=== PATIENT | male | born 1975 | race Caucasian/White ===

== ENCOUNTER → 2021-10-02 | Outpatient (CLI) | payer MEDICAID, SELFPAY ==
[2021-10-02 11:38] LABS: Absolute Neutrophil Count 4.5 X10^3/uL (2.0-7.7); Basophil# 0.09 X10^3/uL; Basophil% 1.3 % (0-1); Eosinophil# 0.31 X10^3/uL; Eosinophils% 4.3 % (0-5); Hematocrit 41.7 % (40-54); Hemoglobin 13.7 g/dL (13.0-16.5); Lymphocyte % 23.6 % (19-41); Mean Corp Hgb Conc 32.9 g/dL (32-36); Mean Corpuscular Hgb 29.6 pg (27.0-32.0); Mean Corpuscular Volume 90.1 fL (80-94); Mean Platelet Vol. 9.6 fl (6.2-12.0); Monocyte% 8.3 % (0-10); NRBC Flagged by Analyzer 0 % (0-5); Neutrophil # 4.48 X10^3/uL (2.7-7.7); Neutrophil % 62.4 % (47-70); Platelet Count 337 K/mm3 (150-450); RBC Distribution Width CV 13.3 % (11.6-14.6); RBC Distribution Width SD 44.1 fl (35.1-43.9); Red Blood Count 4.63 M/mm3 (4.6-6.2); White Blood Count 7.2 K/mm3 (4.4-11.0)
[2021-10-02 12:06] LABS: Hemoglobin A1c 5.3 % (3.8-5.6)
[2021-10-02 12:13] LABS: ALB/GLOB Ratio 1.1 RATIO (0.9-2.4); AST(SGOT) 16 U/L (15-37); Alanine Aminotransfer ALT/SGPT 16 U/L (16-61); Alkaline Phosphatase 83 U/L (45-117); Anion Gap 4 (5-15); BUN 15 mg/dL (7-18); BUN/Creat Ratio 14.9 RATIO (10-20); Calcium,Total 9.3 mg/dL (8.5-10.1); Chloride 107 mmol/L (98-107); Cholesterol 215 mg/dL (200); Creatinine, Serum 1.01 mg/dL (0.70-1.30); EST Glomerular Filtration Rate 85 mL/min (>60); Est Glom Filt Rate - Afr Amer 102 mL/min (>60); Globulin 3.7 g/dL (2.2-4.2); Glucose 90 mg/dL (74-106); High Density Lipoprotein 47 mg/dL; Potassium 3.6 mmol/L (3.5-5.1); Protein, Total 7.7 g/dL (6.4-8.2); Sodium Level 139 mmol/L (136-145); Thyroid Stim Hormone (TSH) 2.46 uIU/mL (0.358-3.74); Triglycerides 146 mg/dL; Very Low Density Lipoprotein 29 mg/dL (5-40)
[2021-10-02 12:37] LABS: HIV - WCH Non-Reactive (Nonreactive)
[2021-10-02 13:31] LABS: Hepatitis C Antibody Nonreactive (Nonreactive)
[2021-10-03 09:42] LABS: H. Pylori Antibody (IgG) 0.27 (0.00-0.79); PSA, Free 0.16 ng/mL
== END | disposition home or self-care (01) ==
PROVIDERS: Visit Provider Nurse Practitioner Adult Health
DX: K21.9 Gastro-esophageal reflux disease without esophagitis (principal); F41.1 Generalized anxiety disorder; R35.0 Frequency of micturition; Z13.220 Encounter for screening for lipoid disorders; Z20.5 Contact with and (suspected) exposure to viral hepatitis
CPT/HCPCS: 84154; 36415; 80053; 80061; 83036; 84153; 84443; 85025; 86677; 86703; 86803

== ENCOUNTER → 2022-07-02 | Outpatient (CLI) | payer MEDICAID, SELFPAY ==
[2022-07-02 16:01] LABS: Hematocrit 41.6 % (40-54); Hemoglobin 13.3 g/dL (13.0-16.5); Mean Corpuscular Hgb 29.1 pg (27.0-32.0); Mean Platelet Vol. 9.7 fl (6.2-12.0); Platelet Count 364 K/mm3 (150-450); RBC Distribution Width CV 13.2 % (11.6-14.6); RBC Distribution Width SD 44.6 fl (35.1-43.9); Red Blood Count 4.57 M/mm3 (4.6-6.2); White Blood Count 8.1 K/mm3 (4.4-11.0)
[2022-07-02 16:28] LABS: ALB/GLOB Ratio 1.1 RATIO (0.9-2.4); AST(SGOT) 14 U/L (15-37); Alanine Aminotransfer ALT/SGPT 16 U/L (16-61); Albumin, Serum 3.9 g/dL (3.2-5.0); Alkaline Phosphatase 69 U/L (45-117); Anion Gap 6 (5-15); BUN 20 mg/dL (7-18); BUN/Creat Ratio 17.9 RATIO (10-20); Calcium,Total 9.4 mg/dL (8.5-10.1); Chloride 108 mmol/L (98-107); Cholesterol 184 mg/dL (200); Creatinine, Serum 1.12 mg/dL (0.70-1.30); EST Glomerular Filtration Rate 75 mL/min (>60); Est Glom Filt Rate - Afr Amer 91 mL/min (>60); Globulin 3.6 g/dL (2.2-4.2); Glucose 85 mg/dL (74-106); High Density Lipoprotein 49 mg/dL; Protein, Total 7.5 g/dL (6.4-8.2); Sodium Level 144 mmol/L (136-145); Triglycerides 74 mg/dL; Very Low Density Lipoprotein 15 mg/dL (5-40)
== END | disposition home or self-care (01) ==
LOC: LAB 14:37
PROVIDERS: Visit Provider Nurse Practitioner Family
DX: Z13.220 Encounter for screening for lipoid disorders (principal)
CPT/HCPCS: 36415; 80053; 80061; 85027

== ENCOUNTER → 2023-06-29 | Outpatient (CLI) | payer BC, SELFPAY ==
--- OUTSIDE RECORDS SUMMARY | 2023-06-29 08:20 | XMS RPT_ITS | CCD ---
Author Name Unknown Address [address] [place] [id number] Organization [facility] Results Test Name Value Interpretation Reference Range Facil ity Progress note 05-06-2021 Note Date & Type Note Facility 05-06-2021 Note HNO ID: [id number] Author: Analisa Luna APRN.DIANETICIST Service: ? Author Type: Nurse Practitioner Type: Progress Notes Filed: 05/06/2021 6:54 PM Note Text: CC: Patient presents with: Cough: with ALEXIS, bodyaches, fatigue AND chills x 2 days No past medical history on file. No past surgical history on file. ALLERGIES Patient has no known allergies. MEDICATIONS No prescriptions on file. FAMILY HISTORY Problem Relation Age of Onset - Allergies Father - Asthma Father Social History Tobacco Use - Smoking status: Current Every Day Smoker Packs/day: 0.50 Years: 15.00 Pack years: 7.50 Types: Cigarettes - Smokeless tobacco: Former User Substance Use Topics - Alcohol use: No - Drug use: No HPI: Yao Beckwith is a 46 year old male who presents to the office with complaint of cough, nonproductive for a few days. Symptoms are staying the same. Associated symptoms includes body aches and cough. Denies nausea, vomiting and diarrhea. Treatments tried include nothing so far. with no relief of symptoms. Sick contacts: unknown. History of asthma, frequent episodes of bronchitis, chronic bronchitis, bronchiectasis or COPD: No Smoker: No Seasonal/environmental allergies: No The ROS is otherwise negative. The patient's pmh, medications, allergies, and past visits are reviewed. PHYSICAL EXAM: BP 116/82 Pulse 84 Temp 37.7 ?C (99.8 ?F) (Left Tympanic) Resp 16 Wt 81.1 kg (178 lb 12.8 oz) SpO2 95% General appearance: alert, cooperative, pleasant, in no acute distress Head: Normocephalic Eyes: EOM's intact, conjunctiva pink and moist, no icterus, sclera white, non-injected Oropharynx:moist without lesions, No erythema, exudates or tonsillar hypertrophy.} Heart: Negative. RRR without obvious murmur, gallop, or rubs. No ectopy. Lungs: clear to auscultation, without rales or wheeze, good air exchange will quarantine until results come back. Potential red flag symptoms discussed with the patient. Reviewed appropriate action plan to take if red flag symptoms occur. Patient agreeable to treatment plan. Analisa Luna APRN.DIANETICIST [facility] Summary Purpose Family History No Family History Records FoundNo Family History Records Found Advance Directives No Advanced Directives Records FoundNo Advanced Directives Records Found Additional Source Comments (unrecognized sect ion and content) No Status Records FoundNo Status Records Found INFORMATION SOURCE (unrecogn ized section and content) DATE CREATED AUTHOR AUTHOR'S ORGANIZ ATION 07/30/2021 [facility] FOR RECORDS PERTAINING TO PATIENTS WHO ARE OR HAVE BEEN ENROLLED IN A CHEMICAL DEPENDENCY/SUBSTANCEABUSE PROGRAM, SOME INFORMATION MAY BE OMITTED. This clinical summary was aggregated from multiple sources. Caution should be exercised in using it in the provision of clinical care. This summary normalizes information from multiple sources, and as a consequence, information in this document may materially change the coding, format and clinical context of patient data. In addition, data may be omitted in some cases. CLINICAL DECISIONS SHOULD BE BASED ON THE PRIMARY CLINICAL RECORDS. [facility] [employer] [facility]. provides no warranty or guarantee of the accuracy or completeness of information in this document.
--- NOTE | 2023-06-30 12:32 | PFT ---
INTRODUCTION: The patient is a 48-year-old male who presents for pulmonary function studies secondary to a diagnosis of dyspnea. Respiratory therapy reported good patient effort. Bronchodilators were used during testing. INTERPRETATION: Forced expiration spirometry demonstrated no evidence of a large airways obstructive ventilatory defect. There was no significant response to aerosolized bronchodilators. Spirograms are of good quality and plateau normally. The respiratory flow-volume loop is normal. Body plethysmography was performed and revealed lung volumes to be within normal limits. Diffusing capacity by single breath CO was also within normal limits. IMPRESSION: Grossly normal pulmonary function studies.
== END | disposition home or self-care (01) ==
PROVIDERS: Referring Provider Nurse Practitioner Family; Visit Provider Nurse Practitioner Family
DX: R06.00 Dyspnea, unspecified (principal)
CPT/HCPCS: 94060; 94726; 94729

== ENCOUNTER 2023-09-01 08:16 | Day surgery (SDC) | payer BC, SELFPAY ==
[2023-09-01] VITALS (7 sets, daily range): BP systolic 92–136; BP diastolic 67–81; PULSE 70–89; RESP 16–17; TEMP 36.1–36.4; O2SAT 95–100; BMI 26.9
[2023-09-01] MEDS: Lactated Ringers 1,000 ML 15 ML IV (08:52)
--- NOTE | 2023-09-01 09:30 | EGD_PTH ---
PATIENT: SALLY BECKWITH LOC: EN U#:[id number] AGE/SX: 48/M ROOM: RE09/01/[address]: Dr. Naga Zuniga MD : 1975 BED: DIS: 09/01/2023 SPEC #: [id number] RECD: 09/01/23 15:20 STATUS: SALO BOYD #: [id number] BALA: 09/01/23 09:[address]: Naga Zuniga DEPT: SURGICAL PATHOLOGY RECD BY: Mona Santana ENTERED: 09/02/23 09:55 SP TYPE: EGD BIOPSY OTHR DR: [facility] Tissues: A - Duodenum, NOS B - Gastric mucous membrane C - Gastric fundus D - Stomach, NOS E - Esophagus, NOS F - Descending colon G - Sigmoid colon biopsy Procedures: Special Stain Group II Surgery Specimen Level IV Alcian Blue/PAS (control) HEADER OPERATION: Colonoscopy, EGD with ph probe placement, biopsy PRE-OP DIAGNOSIS: Acid reflux, Dysphagia, Constipation, Diarrhea TISSUE SUBMITTED: A- Duodenal bulb mucosa biopsy, B- Antrum biopsy, C- Fundal polyp biopsy, D- Gastroesophageal junction biopsy, E- Mid esophagus mucosal biopsy, F- Descending random mucosa biopsy, G- Sigmoid random mucosa biopsy MICROSCOPIC DIAGNOSIS A. Duodenal bulb mucosa, biopsy: Duodenal mucosa with congestion, hemorrhage and mild and acute chronic inflammation. B. Antrum, biopsy: Mild gastritis. See microscopic description and comment. C. Fundal polyp, biopsy: Fundic gland polyp. D. Gastroesophageal junction, biopsy: A fragment of gastric mucosa with chronic inflammation. Intestinal metaplasia (goblet cell metaplasia) not identified. See comment. E. Mid esophagus mucosa, biopsy: A fragment of benign squamous epithelium. F. Descending colon mucosa, random biopsy: A fragment of colonic mucosa, no pathologic diagnosis. G. Sigmoid colon, random biopsy: Fragments of colonic mucosa, no pathologic diagnosis. REHANA/ 09/05/23 COMMENT B. Immunohistochemistry ([id number]) supports the above diagnosis. D. Alcian blue/PAS stain with matched control is used in the evaluation of the specimen. MICROSCOPIC DESCRIPTION Slides are reviewed. B. The specimen shows fragments of gastric mucosa with chronic inflammatory cell infiltrates in the lamina propria consisting of lymphocytes and plasma cells, consistent with mild chronic gastritis. GROSS DESCRIPTION A. Received in fixative is one container labeled with the patient's name and designated Duodenal bulb mucosa biopsy. The specimen consists of one irregular fragment of light plata soft tissue that measures 0.3 x 0.3 x 0.1 cm. The specimen is totally submitted in one cassette. B. Received in fixative is one container labeled with the patient's name and designated Antrum biopsy. The specimen consists of one irregular fragment of light plata soft tissue that measures 0.4 x 0.2 x 0.1 cm. The specimen is totally submitted in one cassette. C. Received in fixative is one container labeled with the patient's name and designated Fundal polyp biopsy. The specimen consists of two irregular fragments of light plata soft tissue that in aggregate measure 0.8 x 0.2 x 0.1 cm. The specimen is totally submitted in one cassette. D. Received in fixative is one container labeled with the patient's name and designated GE junction biopsy. The specimen consists of one irregular fragment of light plata soft tissue that measures 0.4 x 0.3 x 0.1 cm. The specimen is totally submitted in one cassette. E. Received in fixative is one container labeled with the patient's name and designated Mid esophagus mucosal biopsy. The specimen consists of one irregular fragment of light plata soft tissue that measures 0.5 x 0.4 x 0.1 cm. The specimen is totally submitted in one cassette. F. Received in fixative is one container labeled with the patient's name and designated Descending random mucosa biopsy. The specimen consists of one irregular fragment of light plata soft tissue that measures 0.3 x 0.3 x 0.1 cm. The specimen is totally submitted in one cassette. G. Received in fixative is one container labeled with the patient's name and designated Sigmoid random mucosa biopsy. The specimen consists of two irregular fragments of light plata soft tissue that in aggregate measure 0.6 x 0.3 x 0.1 cm. The specimen is totally submitted in one cassette. SJ/ 09/02/23 TC:3 CPT:33931f5,79851
--- NOTE | 2023-09-01 09:30 | IMM_PTH ---
PATIENT: SALLY BECKWITH LOC: EN U#:[id number] AGE/SX: 48/M ROOM: RE09/01/[address]: Dr. Naga Zuniga MD : 1975 BED: DIS: 09/01/2023 SPEC #: [id number] RECD: 09/02/23 08:12 STATUS: SALO REErich #: [id number] BALA: 09/01/23 09:[address]: Naga Zuniga DEPT: IMMUNOHISTOCHEMISTRY RECD BY: Edgardo Brandon ENTERED: 09/02/23 08:13 SP TYPE: IMMUNO OTHR DR: [facility] Tissues: B - Stomach, NOS Procedures: H Pylori (initial) PHYSICIAN & INSTITUTION [place] [address] SPECIMEN INFORMATION: Tissue Source: Antrum biopsy - B Clinical Info: Acid reflux, Dysphagia, Constipation, Diarrhea Specimen Number: [id number] CPT code: 87849 METHODOLOGY: Deparaffinized sections of prefer/formalin-fixed tissue or PAP/DQ stained slides are incubated with monoclonal/polyclonal antibodies/oligonucleotide probes. Localization is made via biotin free immunoperoxidase method. Appropriate controls are performed and reacted as expected. Results on target cell population are indicated in the following table: RESULTS: ANTIBODY / CLONE RESULT Block B H Pylori (polyclonal) negative These tests were developed and their performance characteristics determined by [facility]. They may not have been cleared or approved by the U.S. Food and Drug Administration. The FDA has determined that such clearance or approval is not necessary. The above immunohistochemical/dualISH markers are ordered and reviewed by the Pathologist. INTERPRETATION: Antrum, biopsy: Negative for Helicobacter pylori organisms. REHANA/ 09/05/23
--- NOTE | 2023-09-01 09:53 | PCM.HP.BLA ---
History and Physical Date of Admission: 09/01/23 Date of Service: 07/20/23 MR#: [id number] Acct: [id number] Name: SALLY BECKWITH Rep #: [id number] : 1975 Provider: Dr. 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 Naga Zuniga MD) Acid reflux Bloating Constipation Diarrhea Dysphagia Family History (Updated 07/20/23 @ 13:43 by Nalini Stringer) Father AsthmaGrandmother Cancer lung Social History Smoking Status: Current every day smoker HPI HPI HPI: Patient is a 48-year-old male who presents for evaluation of heartburn and dysphagia. They are referred for surgical consultation from the [facility]. Mr. Beckwith shares that his swallowing difficulty has become actually more infrequent in recent years but estimates that it has been there at least 15 years. He notes some associated limited choking episodes but states that his symptoms actually improved since giving up alcohol. He shares that his reflux symptoms (he denies significant heartburn symptoms) have been present for about 25 years but have been worse over the past 15 years. He shares that he has recently resolved to try to get healthier after he was challenged by his daughter to live another 40 years. While this has been the impetus to have this issue further investigated, he notes that the past few months have been worse with his reflux symptoms. He describes pressure pushing all the way up and pressure and gestures to his neck when he experiences the reflux symptoms. He states that the symptoms often precipitate anxiety attacks and estimates this occurs with a frequency of 2-3 times per week. He notes that his symptoms seem to be worse in the evening and in the past has awoken him from sleep but this has not been the case more recently. During these times he wakes up gasping for air unable to breathe. He denies any history of frequent upper respiratory tract infections. 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 He confirms that Protonix has been helpful for the last 15 years and he certainly notices a increase in his symptoms when he is without it (he notes a recent 5-day lapse in his treatment as he awaited a refill of his medication. Mr. Beckwith confirms a roughly 15 pound weight gain in the last 3 months and attributes this to less physical activity at work as well as quitting smoking. He confirms that he is trying to space out dinner and bedtime. He is also restricting spicy foods but admits that he is not perfect. He states that he there is still a struggle with caffeine. He shares that he is trying to cut back but when he cuts back he finds himself overeating and this also produces symptoms. Patient states that he generally has 1 solid stool per day but previously experienced significant issues with constipation and diarrhea?particularly when he was still drinking alcohol. He denies any significant straining with bowel movements. He does note that given his recent antibiotic course for a tooth infection he has been more mucousy with the consistency of his bowels. He denies noting any bloody stools. He does confirm a history of hemorrhoids but denies any flares of late. There is no history of abdominal surgery. Patient denies a family history of inflammatory bowel disease, diverticulitis, or colon cancer. However, he shares that his father has told him that he is covered in ulcers all the way through but he is unsure of what this means exactly as his father is somewhat quiet about these matters. ROS General General: Yes weight change and fatigue; No appetite, colon cancer, breast cancer or weakness HEENT HEENT: Yes difficulty swallowing, eye injury and eye surgery; No swollen glands or hoarseness Endo Endocrine: No thyroid disease, diabetes mellitus, thyroid cancer, Hair loss, heat intolerance or cold intolerance Skin Skin: Yes rash; No changing moles Breast Breast: No left breast lump, right breast lump, nipple discharge, breast pain, abnormal mammogram, abnormal US or breast enlargement Musc Musculoskeletal: Yes back problems and arthritis; No rheumatoid arthritis, gout or joint pain Cardio Cardiovascular: No murmur, pacemaker, heart disease, atrial fibrillation, high blood pressure, heart attack, heart stent, palpitations, shortness of breat with exertion or chest pain Psych Psychiatric: Yes depression and anxiety; No hearing voices Resp Respiratory: Yes shortness of breath, No sleep apnea, Yes cough, No COPD, No asthma, No emphysema and No wheezing Gastro Gastrointestinal: Yes abdominal pain, Yes nausea or vomiting, Yes diarrhea, Yes constipation, Yes blood in stool, Yes acid reflux, Yes hemorrhoids, No ulcers, No gallbladder problem and Yes black,tarry stools Reg Hematologic: No blood thinners, No blood disorders, No bleeding, No anemia and No blood clots Neuro Neurologic: No system reviewed and no additional complaints, except as documented, No as per HPI, No abnormal gait, No abnormal hearing, No abnormal movements, No abnormal speech, No behavioral changes, No burning sensations, No confusion, No convulsions, No disequilibrium, No dizziness, No localized weakness, No frequent falls, No headache(s), No lack of coordination, No loss of vision, No memory loss, Yes numbness, No other visual disturbances, No radicular pain, No restless legs, No sensory deficit, No syncope, Yes tingling, No tremor(s), No weakness and No other Exam Const General: cooperative and anxious Orientation: alert, awake and oriented x3 Resp Effort & Inspection: normal respiratory effort GI Other: Nondistended, no scars, soft, mildly tender to palpation (deep) of the epigastrium. Assessment and Plan Assessment and Plan (1) Acid reflux: Status: Acute Comment: This is a 48-year-old male who presents with a number of GI complaints including acid reflux. This does appear to be his main complaint although he admits that there is significant chronicity with this complaint. He suggest that it has become worse in recent months. It is partially responsive to PPI therapy. He has never undergone EGD for evaluation. There has been a recent weight gain of 15 pounds in recent months. I discussed with him that I would like to proceed with EGD for evaluation for possible hiatal hernia as well as biopsies to assess for any mucosal changes with his history of reflux and smoking. Additionally, patient has a normal BMI and appears distressed by the symptoms so I have recommended consideration of possible antireflux surgery. As part of this workup I have recommended we place a pH probe at the time of his EGD to try to calculate a DeMeester score. Mr. Beckwith is receptive of this recommendation and wishes to proceed as described because he would simply like to understand why he is feeling the way he is. Plan: EGD with pH probe placement (2) Dysphagia: Status: Acute Comment: Patient describes difficulty swallowing for years. This is somewhat improved per his report. His descriptions of food becoming stuck and reactive airway history are somewhat suggestive for possible diagnosis of eosinophilic esophagitis. I will plan to get biopsies and look carefully for this diagnosis at the time of the EGD as proposed above. Plan: EGD (3) Constipation: Status: Acute Comment: Patient describes relatively normal bowel movements since stopping his alcoholism. Yet, with his history and age now greater than 46 with no prior colonoscopic investigation I have recommended we complete a diagnostic colonoscopy in addition to the EGD proposed above. Plan: Complete colonoscopy with 2-day bowel prep in conjunction with EGD as above. 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 (4) Diarrhea: Status: Acute Comment: As with constipation, patient's diarrheal symptoms seem minimal now since leaving alcoholism behind. Still, recommending colonoscopy as above Plan: I have examined the patient and the H&P has been reviewed. There are no clinical changes since date of exam. He does state that his fasting has led to improvement in his reflux, but he also confirms that he has stopped his medication anticipation of pH probe placement. He confirms completion of a prep and that his output is now clear. His abdomen is benign on exam. He denies any questions related today's procedure. Will now proceed to endoscopy suite for planned EGD with pH probe placement as well as diagnostic colonoscopy.
--- NOTE | 2023-09-01 11:02 | OP.EGD_ITS ---
Patient Name: Yao King Procedure Date: 09/01/2023 9:52 AM Date of : 1975 Age: 48 Procedure: Upper GI endoscopy Indications: Dysphagia, Heartburn, Suspected esophageal reflux Providers: Naga Zuniga MD Medicines: See the Anesthesia note for documentation of the administered medications Patient Profile: Refer to note in patient chart for documentation of history and physical. Complications: No immediate complications. Estimated blood loss: Minimal. Procedure: Pre-Anesthesia Assessment: - The heart rate, respiratory rate, oxygen saturations, blood pressure, adequacy of pulmonary ventilation, and response to care were monitored throughout the procedure. After obtaining informed consent, the endoscope was passed under direct vision. Throughout the procedure, the patient's blood pressure, pulse, and oxygen saturations were monitored continuously. The gastroscope was introduced through the mouth, and advanced to the second part of duodenum. The upper GI endoscopy was accomplished without difficulty. The patient tolerated the procedure well. Scope In: 10:04:16 AM Scope Out: 10:22:16 AM Total Procedure Duration Time 0 hours 18 minutes 0 seconds Findings: Localized mildly erythematous mucosa without active bleeding and with no stigmata of bleeding was found in the duodenal bulb. Biopsies were taken with a cold forceps for histology. Estimated blood loss was minimal. Localized mildly erythematous mucosa without bleeding was found in the gastric antrum. Biopsies were taken with a cold forceps for Helicobacter pylori testing. Estimated blood loss was minimal. A few 3 mm semi-sessile polyps with no bleeding and no stigmata of recent bleeding were found in the gastric fundus. Biopsies were taken with a cold forceps for histology. Estimated blood loss was minimal. The Z-line was regular and was found 43 cm from the incisors. Biopsies were taken with a cold forceps for histology. Estimated blood loss was minimal. A few 2 to 4 mm mucosal nodules with a localized distribution were found in the middle third of the esophagus, 30 cm from the incisors. Biopsies were taken with a cold forceps for histology. Estimated blood loss was minimal. The upper third of the esophagus was normal. The PRESTON capsule with delivery system was introduced through the mouth and advanced into the esophagus, such that the PRESTON pH capsule was positioned 37 cm from the incisors, which was 6 cm proximal to the GE junction. The PRESTON pH capsule was then deployed and attached to the esophageal mucosa. The delivery system was then withdrawn. Endoscopy was utilized for probe placement and diagnostic evaluation. Impression: - Erythematous duodenopathy. Biopsied. - Erythematous mucosa in the antrum. Biopsied. - A few gastric polyps. Biopsied. - Z-line regular, 43 cm from the incisors. Biopsied. - Mucosal nodule found in the esophagus. Biopsied. - Normal upper third of esophagus. - The PRESTON pH capsule was deployed. Recommendation: - Discharge patient to home (via wheelchair). - Resume previous diet today. - Continue present medications. - Await pathology results. - Telephone my office for pathology results in 1 week. Procedure Code(s): --- Professional --- 43714, Esophagogastroduodenoscopy, flexible, transoral; with biopsy, single or multiple Diagnosis Code(s): --- Professional --- K31.89, Other diseases of stomach and duodenum K31.7, Polyp of stomach and duodenum K22.89, Other specified disease of esophagus R13.10, Dysphagia, unspecified R12, Heartburn CPT copyright 2021 [employer]. All rights reserved. The codes documented in this report are preliminary and upon controls technician review may be revised to meet current compliance requirements. Naga Zuniga MD 09/01/2023 11:01:53 AM This report has been signed electronically. Number of Addenda: 0 Note Initiated On: 09/01/2023 9:52 AM
--- NOTE | 2023-09-01 11:02 | OP.CCLET_ITS ---
[facility]01[facility]2023 [facility] for Yao Zuniga [facility] This procedure was performed on August. My impressions and recommendations are as follows: Impressions : - Erythematous duodenopathy. Biopsied. - Erythematous mucosa in the antrum. Biopsied. - A few gastric polyps. Biopsied. - Z-line regular, 43 cm from the incisors. Biopsied. - Mucosal nodule found in the esophagus. Biopsied. - Normal upper third of esophagus. - The PRESTON pH capsule was deployed. Recommendations : - Discharge patient to home (via wheelchair). - Resume previous diet today. - Continue present medications. - Await pathology results. - Telephone my office for pathology results in 1 week. My findings are described in the full procedure note, which is enclosed. If I can be of further assistance, please feel free to contact me at Doctor phone number(s): , Work: . Sincerely, Naga Zuniga MD 09/01/2023 11:01:53 AM This report has been signed electronically.
--- NOTE | 2023-09-01 11:07 | OP.COLON_ITS ---
Patient Name: Yao King Procedure Date: 09/01/2023 10:25 AM Date of : 1975 Age: 48 Procedure: Colonoscopy Indications: Chronic diarrhea, Constipation Providers: Naga Zuniga MD Medicines: See the Anesthesia note for documentation of the administered medications Patient Profile: Refer to note in patient chart for documentation of history and physical. Last Colonoscopy: none. The patient's first colonoscopy is today. Complications: No immediate complications. Estimated blood loss: Minimal. Procedure: Pre-Anesthesia Assessment: - The heart rate, respiratory rate, oxygen saturations, blood pressure, adequacy of pulmonary ventilation, and response to care were monitored throughout the procedure. After I obtained informed consent, the scope was passed under direct vision. Throughout the procedure, the patient's blood pressure, pulse, and oxygen saturations were monitored continuously. The Colonoscope was introduced through the anus and advanced to the cecum, identified by the appendiceal orifice, ileocecal valve and palpation. The colonoscopy was somewhat difficult due to significant looping. Successful completion of the procedure was aided by using manual pressure. The patient tolerated the procedure well. The quality of the bowel preparation was adequate. Scope In: 10:26:38 AM Scope Withdrawal Time 0 hours 18 minutes 22 seconds Scope Out: 10:52:55 AM Total Procedure Duration Time 0 hours 26 minutes 17 seconds Findings: Skin tags were found on perianal exam. The colon (entire examined portion) appeared normal. Biopsies for histology were taken with a cold forceps from the descending colon and sigmoid colon for evaluation of microscopic colitis. Estimated blood loss was minimal. Internal hemorrhoids were found during retroflexion. The hemorrhoids were Grade I (internal hemorrhoids that do not prolapse). No biopsies or other specimens were collected for this exam. Impression: - Perianal skin tags found on perianal exam. - The entire examined colon is normal. Biopsied. - Internal hemorrhoids. No specimens collected. Recommendation: - Discharge patient to home (via wheelchair). - Resume previous diet today. - Continue present medications. - Await pathology results. - Repeat colonoscopy in 10 years for screening purposes. - Telephone my office for pathology results in 1 week. Procedure Code(s): --- Professional --- 33056, Colonoscopy, flexible; with biopsy, single or multiple Diagnosis Code(s): --- Professional --- K64.0, First degree hemorrhoids K64.4, Residual hemorrhoidal skin tags K52.9, Noninfective gastroenteritis and colitis, unspecified K59.00, Constipation, unspecified CPT copyright 2021 [employer]. All rights reserved. The codes documented in this report are preliminary and upon certified medical coder review may be revised to meet current compliance requirements. Naga Zuniga MD 09/01/2023 11:06:46 AM This report has been signed electronically. Number of Addenda: 0 Note Initiated On: 09/01/2023 10:25 AM
--- NOTE | 2023-09-01 11:07 | OP.CCLET_ITS ---
[facility] This procedure was performed on August. My impressions and recommendations are as follows: Impressions : - Perianal skin tags found on perianal exam. - The entire examined colon is normal. Biopsied. - Internal hemorrhoids. No specimens collected. Recommendations : - Discharge patient to home (via wheelchair). - Resume previous diet today. - Continue present medications. - Await pathology results. - Repeat colonoscopy in 10 years for screening purposes. - Telephone my office for pathology results in 1 week. My findings are described in the full procedure note, which is enclosed. If I can be of further assistance, please feel free to contact me at Doctor phone number(s): , Work: . Sincerely, Naga Zuniga MD 09/01/2023 11:06:46 AM This report has been signed electronically.
== END 2023-09-01 11:55 | disposition home or self-care (01) ==
LOC: EN 08:18 → AC 08:19
PROVIDERS: Visit Provider Surgery
PROC: 0DJD8ZZ Inspection of Lower Intestinal Tract, Via Natural or Artificial Opening Endoscopic (ICD-10-PCS; CPT 45378; principal; 2023-09-01 09:25)
DX: K29.70 Gastritis, unspecified, without bleeding (principal); K21.9 Gastro-esophageal reflux disease without esophagitis; R13.10 Dysphagia, unspecified; K64.0 First degree hemorrhoids; K31.89 Other diseases of stomach and duodenum; K31.7 Polyp of stomach and duodenum; K64.4 Residual hemorrhoidal skin tags; F17.200 Nicotine dependence, unspecified, uncomplicated; Z79.899 Other long term (current) drug therapy
CPT/HCPCS: 45380; 43239; 88305; 88313; 88342; J7120

== ENCOUNTER → 2023-12-29 | Outpatient (CLI) | payer BC, SELFPAY ==
[2023-12-29 17:14] LABS: Absolute Lymphocyte Count 1.83 X10^3/uL (0.83-4.51); Absolute Neutrophil Count 4.8 X10^3/uL (2.0-7.7); Basophil# 0.09 X10^3/uL; Basophil% 1.2 % (0-1); Eosinophil# 0.34 X10^3/uL; Eosinophils% 4.5 % (0-5); Hematocrit 40.9 % (40-54); Hemoglobin 13.7 g/dL (13.0-16.5); Lymphocyte # 1.83 X10^3/ul (0.83-4.51); Lymphocyte % 24.1 % (19-41); Mean Corp Hgb Conc 33.5 g/dL (32-36); Mean Corpuscular Hgb 29.4 pg (27.0-32.0); Mean Corpuscular Volume 87.8 fL (80-94); Mean Platelet Vol. 9.6 fl (6.2-12.0); Monocyte# 0.48 X10^3/uL; Monocyte% 6.3 % (0-10); NRBC Flagged by Analyzer 0 % (0-5); Neutrophil # 4.83 X10^3/uL (2.7-7.7); Neutrophil % 63.6 % (47-70); Platelet Count 355 K/mm3 (150-450); RBC Distribution Width CV 13.1 % (11.6-14.6); RBC Distribution Width SD 41.5 fl (35.1-43.9); Red Blood Count 4.66 M/mm3 (4.6-6.2); White Blood Count 7.6 K/mm3 (4.4-11.0)
[2023-12-29 17:34] LABS: Vitamin B12 599 pg/mL (211-911); Vitamin D,25 Hydroxy 19.7 ng/mL
[2023-12-29 17:47] LABS: ALB/GLOB Ratio 1.1 RATIO (0.9-2.4); AST(SGOT) 27 U/L (15-37); Alanine Aminotransfer ALT/SGPT 24 U/L (16-61); Albumin, Serum 4.1 g/dL (3.2-5.0); Alkaline Phosphatase 80 U/L (45-117); Anion Gap 7 (5-15); BUN 15 mg/dL (7-18); BUN/Creat Ratio 14.9 RATIO (10-20); Calcium,Total 9.2 mg/dL (8.5-10.1); Chloride 108 mmol/L (98-107); Creatinine, Serum 1.01 mg/dL (0.70-1.30); EST Glomerular Filtration Rate 84 mL/min (>60); Est Glom Filt Rate - Afr Amer 101 mL/min (>60); Globulin 3.6 g/dL (2.2-4.2); Glucose 120 mg/dL (74-106); Potassium 3.4 mmol/L (3.5-5.1); Protein, Total 7.7 g/dL (6.4-8.2); Sodium Level 139 mmol/L (136-145); Thyroid Stim Hormone (TSH) 1.74 uIU/mL (0.358-3.74)
[2024-01-05 12:11] LABS: Testosterone, % Free 2.86 % (1.50-4.20); Testosterone, Free 12.98 ng/dL (5.00-21.00); Testosterone, Total 454 ng/dL (264-916)
== END | disposition home or self-care (01) ==
LOC: VSLAB 15:27
PROVIDERS: PCP Nurse Practitioner Family; Visit Provider Nurse Practitioner Family
DX: R53.83 Other fatigue (principal); E55.9 Vitamin D deficiency, unspecified
CPT/HCPCS: 36415; 80053; 82306; 82607; 84402; 84403; 84443; 85025

== ENCOUNTER → 2024-11-21 | Outpatient (CLI) | payer BC, SELFPAY ==
[2024-11-21 16:37] LABS: Absolute Lymphocyte Count 1.65 X10^3/uL (0.83-4.51); Absolute Neutrophil Count 5.2 X10^3/uL (2.0-7.7); Basophil# 0.09 X10^3/uL; Basophil% 1.2 % (0-1); Eosinophil# 0.18 X10^3/uL; Eosinophils% 2.4 % (0-5); Hematocrit 38.6 % (40-54); Lymphocyte # 1.65 X10^3/ul (0.83-4.51); Lymphocyte % 21.6 % (19-41); Mean Corp Hgb Conc 33.7 g/dL (32-36); Mean Corpuscular Hgb 29.2 pg (27.0-32.0); Mean Corpuscular Volume 86.7 fL (80-94); Mean Platelet Vol. 9.2 fl (6.2-12.0); Monocyte# 0.48 X10^3/uL; Monocyte% 6.3 % (0-10); NRBC Flagged by Analyzer 0 % (0-5); Neutrophil # 5.21 X10^3/uL (2.7-7.7); Neutrophil % 68.2 % (47-70); Platelet Count 315 K/mm3 (150-450); RBC Distribution Width CV 12.9 % (11.6-14.6); RBC Distribution Width SD 40.8 fl (35.1-43.9); Red Blood Count 4.45 M/mm3 (4.6-6.2); White Blood Count 7.6 K/mm3 (4.4-11.0)
[2024-11-21 17:39] LABS: ALB/GLOB Ratio 1.6 RATIO (0.9-2.4); AST(SGOT) 24 U/L (<=37); Alanine Aminotransfer ALT/SGPT 11 U/L (<=46); Albumin, Serum 4.5 g/dL (3.5-5.0); Alkaline Phosphatase 80 U/L (40-129); Anion Gap 13 (5-15); BUN 15 mg/dL (4-19); BUN/Creat Ratio 14.6 RATIO (10-20); Calcium,Total 9.5 mg/dL (7.6-11.0); Carbon Dioxide 22.5 mmol/L (21.0-32.0); Chloride 103 mmol/L (98-108); Creatinine, Serum 1.03 mg/dL (0.70-1.20); EST Glomerular Filtration Rate 90 (>60); Globulin 2.8 g/dL (2.2-4.2); Glucose 85 mg/dL (70-99); Potassium 3.8 mmol/L (3.3-5.1); Protein, Total 7.3 g/dL (5.9-8.4); Sodium Level 138 mmol/L (133-145); Total Bilirubin 0.48 mg/dL (0.00-1.30)
[2024-11-21 17:59] LABS: Cholesterol 225 mg/dL (<=200); High Density Lipoprotein 45 mg/dL; Low Density Lipoprotein Calc. 164 mg/dL; Triglycerides 81 mg/dL; Very Low Density Lipoprotein 16 mg/dL (5-40); cholesterol:hdl ratio screen 5.04
[2024-11-21 18:02] LABS: Vitamin D,25 Hydroxy 56.8 ng/mL (30-100)
== END | disposition home or self-care (01) ==
LOC: VSLAB 14:16
PROVIDERS: PCP Nurse Practitioner Family; Visit Provider Nurse Practitioner Family
DX: F41.1 Generalized anxiety disorder (principal); R14.0 Abdominal distension (gaseous); Z13.220 Encounter for screening for lipoid disorders; E55.9 Vitamin D deficiency, unspecified
CPT/HCPCS: 36415; 80053; 80061; 82306; 84443; 85025; 86003; 86005

== ENCOUNTER 2025-01-08 21:22 | Emergency (ER) | payer BC, SELFPAY ==
[2025-01-08 21:23] VITALS: BP 127/83; PULSE 109; RESP 18; TEMP 37.3; O2SAT 96; BMI 26.5
--- NOTE | 2025-01-08 21:29 | EX.ED.DYSGE1 ---
HPI History of Present Illness Chief Complaint: General Illness [facility] Medical History Depression Anxiety Rash Arthritis Injury of head and neck Gastric reflux Former smoker Shortness of breath on exertion Dysphagia Constipation Bloating Diarrhea Acid reflux Home Medications ?Medication ?Instructions ?Recorded ?Last Taken ?Type bismuth subsalicylate 262 mg 524 mg PO Q30M PRN diarrhea 07/20/23 Unknown History tablet (Pepto-Bismol) lactobacillus combination no.4 3 3,000 mmu cells PO DAILY PRN GUT 07/20/23 08/31/23 History billion cell capsule (Probiotic) HEALTH Held on 08/30/23. Instructions: FOR PROCEDURE pantoprazole 40 mg tablet,delayed 40 mg PO DAILY 07/20/23 08/16/23 History release metoclopramide HCl 5 mg tablet 5 mg PO Q8H 5 days #15 tabs 01/08/25 Unknown Rx (Reglan) omeprazole 40 mg capsule,delayed 40 mg PO DAILY 01/08/25 Unknown History release trazodone 50 mg tablet 50 mg PO QHS 01/08/25 Unknown History Allergy/AdvReac Type Severity Reaction Status Date / Time No Known Allergies Allergy Verified 01/08/25 21:23 Family History Father Asthma Grandmother Cancer lung Social History Smoking Status: Former smoker EXAM Physical Exam Const Vital Signs: 01/08/25 21:23 01/08/25 21:57 01/08/25 22:58 Temperature 99.2 F H 98.8 F Temperature Source Oral Pulse Rate 109 H 110 H Respiratory Rate 18 18 Respiratory Effort Normal Respiratory Pattern Normal Blood Pressure 127/83 H 124/47 H Blood Pressure Mean 97 72 Pulse Ox 96 97 Oxygen Delivery Method Room Air MDM MDM MDM Narrative Medical decision making narrative: HISTORY OF PRESENT ILLNESS: Chief complaint: Nausea, headache 49-year-old male history of GERD presents with concern for headache, nausea, blurred vision. Notes occurred approximate 10 hours prior to arrival after taking oral doxycycline for recently diagnosed middle ear infection. Notes he typically gets a stomach upset secondary to a weak stomach after he takes antibiotics but today symptoms have lasted longer and have been more severe. Denies chest pain or shortness of breath. Denies shmuel abdominal pain. Denies focal weakness slurred speech or loss of vision. Patient denies sudden onset or thunderclap headache, denies maximal intensity within 1 minute, vomiting, neck pain, stiffness, changes in vision, fever, history malignancy, syncope, or seizures associated with headache. REVIEW OF SYSTEMS: Pertinent positives: Headache, blurred vision, dizziness, nausea, heartburn Pertinent negatives: Focal weakness, loss of vision PHYSICAL EXAM: Nursing triage notes reviewed, Vital signs reviewed Constitutional: please see mdm HENT: MMM Eyes: Pupils equal round and reactive to light, Extraocular muscles intact Neck: No stridor, no JVD, full neck ROM Lungs: Clear to auscultation, No wheezing or rales. No increased work of breathing, no conversational dyspnea, no accessory muscle use, no nasal flaring. No respiratory distress noted Heart: Regular rate and rhythm, No murmurs, No rubs and No gallops, 2+ distal pulses (radial, femoral, posterior tibial) in all extremities Abdomen: Soft, there is no tenderness, rigidity, rebound or guarding, no obvious peritoneal signs, no palpable pulsatile abdominal masses, no auscultated abdominal bruit : No CVAT Extremities: No edema Neuro: Alert and oriented x3, neuro exam at baseline, cranial nerves II through XII are intact. No pain with extraocular muscle movement. There is negative test of skew. 5 of 5 strength in upper and lower extremities in flexion extension. Intact sensation to light touch in upper and lower extremity dermatomes. No truncal or extremity ataxia. No dysdiadochokinesia. Normal gait. 2+ reflexes in upper and lower extremities. No meningeal signs. Negative Babinski. NIH of 0. Skin: No rash or lesions noted MEDICAL DECISION MAKING: Chief Complaint: please see HPI External records reviewed: Reviewed prior outpatient notes Factors affecting care: GERD Social determinants of health: Denies alcohol History obtained from others: none Consults: none [facility] Narrative: The patient was initially hemodynamically stable, afebrile and nontoxic-appearing. Exam with no neurologic deficits. Left TM pearly cobian with some chronic appearing scarring but no sign of acute infection. No sign of otitis externa I considered the following differential diagnosis: Dehydration, intra-abdominal pathology, arrhythmia, subarachnoid hemorrhage, meningitis, carotid artery dissection, primary headache The patient's physical exam was not consistent with meningitis, subarachnoid hemorrhage or carotid artery dissection. Abdominal soft and nontender not consistent with acute surgical intra-abdominal pathology I obtained labs to further determine if the patient was suffering from a life-threatening etiology. Initially resuscitated patient 1 L normal saline, Pepcid and Reglan ALL IMAGES (IF OBTAINED) HAVE BEEN PERSONALLY REVIEWED AND INTERPRETED BY MYSELF. CBC without leukocytosis, severe anemia, no thrombocytopenia. CMP without evidence of acute kidney injury, significant electrolyte abnormality, anion gap to suggest end organ hypo-perfusion, no evidence of metabolic acidosis with a normal bicarbonate, no evidence of hepatobiliary obstructive pathology. Lipase is wnl indicating no pancreatic inflammation. On re-evaluation patient is vital signs improved. Neurologic exam remained intact. Repeat abdominal exam remain benign he noted symptomatic improvement. He is appropriate for discharge home. Suspect his presentation is related to adverse effect of medication. Encouraged him to discontinue antibiotics as I did not see any sign of otitis media or externa on his initial exam. Encouraged Reglan at home, continue pantoprazole. Discussed tricked return precautions. Gave GI follow-up. The patient and/or family, caregivers express understanding. The patient and/or family, caregivers agrees with the plan. Shared decision making: I will have a discussion with the patient and or visitors regarding risk/benefits of further testing or admission. They will be made aware of of the risk/benefits inherent in this decision they will be given the opportunity to voice understanding. Total critical care time today provided was at least 0 minutes. This excludes separately billable procedures. Critical care time (if documented) is secondary to the patient having high probability of clinically significant/life threatening deterioration in the patient's condition which required my urgent intervention. Impression: 1. Adverse reaction to medication 2. Nausea 3. Headache Dispo: Discharge This note was generated with [employer] dictation software. It may contain incorrect words, spelling, and punctuation that were not noted in review of the chart prior to signing. Lab Data Labs: Laboratory Results - last 24 hr 01/08/25 21:56 WBC 6.1 RBC 4.51 L Hgb 13.2 Hct 39.7 L MCV 88.0 MCH 29.3 MCHC 33.2 RDW Std Deviation 42.9 RDW Coeff of Sascha 13.2 Plt Count 290 MPV 9.1 Immature Gran % (Auto) 0.300 Neut % (Auto) 80.8 H Lymph % (Auto) 3.9 L Sevier % (Auto) 13.3 H Eos % (Auto) 0.7 Baso % (Auto) 1.0 Absolute Neuts (auto) 4.9 Absolute Lymphs (auto) 0.24 L Nucleated RBC % 0 Sodium 136 Potassium 3.7 Chloride 101 Carbon Dioxide 22.7 Anion Gap 13 BUN 14 Creatinine 1.03 Estim Creat Clear Calc 87.71 Est GFR (MDRD) Non-Af 90 BUN/Creatinine Ratio 13.2 Glucose 111 H Calcium 9.4 Total Bilirubin 0.30 AST 21 ALT 9 Alkaline Phosphatase 96 Total Protein 7.5 Albumin 4.3 Globulin 3.1 Albumin/Globulin Ratio 1.4 Lipase 23 Discharge Plan Triage Chief Complaint: General Illness ED Provider: Kenny Baez Dx/Rx/DC Orders Instructions: ED GERD (Adult), ED Headache, Tension Prescriptions: New metoclopramide HCl [Reglan] 5 mg tablet 5 mg PO Q8H 5 Days Qty: 15 0RF No Action pantoprazole 40 mg tablet,delayed release (DR/EC) 40 mg PO DAILY Patient Comments: ON HOLD FOR PROCEDURE Probiotic 3 billion cell capsule 3,000 mmu cells PO DAILY PRN (Reason: GUT HEALTH) Rx Instructions: administer with a meal Pepto-Bismol 262 mg tablet 524 mg PO Q30M PRN (Reason: diarrhea) Rx Instructions: do not exceed 8 doses in a 24 hour period trazodone 50 mg tablet 50 mg PO QHS omeprazole 40 mg capsule,delayed release(DR/EC) 40 mg PO DAILY Primary Care Provider: Unique Ferreira Referrals: Evert De La Garza DO [Med Staff - Active Staff] - Unique Ferreira, [employer] [Primary Care Provider] - Activity Restrictions/Additional Instructions: Thank you for trusting us with your care today! Your labs are reassuring. Your exam is reassuring. Please take Reglan as needed for headache and nausea control Please take Tylenol (2 pills, 650 mg), ibuprofen (2 pills, 400 mg) every 6 hours as needed for pain and fever control. Please return to the emergency department if your symptoms change or worsen. Please follow with your primary care physician + GI for further outpatient evaluation and management. Print Language: Iranian Disposition Disposition: Home, Self Care Discharge Date/Time: 01/08/25 23:03
--- NOTE | 2025-01-08 21:44 | EKG12_ITS ---
Test Reason : DYSRHYTHMIA Blood Pressure : */* mmHG Vent. Rate : 107 BPM Atrial Rate : 107 BPM P-R Int : 162 ms QRS Dur : 78 ms QT Int : 304 ms P-R-T Axes : 15 37 -12 degrees QTcB Int : 405 ms Sinus tachycardia Otherwise normal ECG Confirmed by NAYELI MONTOYA, DONELL ([id number]), editor continuity and script KAI BERUMEN ([id number]) on 01/09/2025 8:34:37 AM Referred By: Confirmed By: DONELL TYLER MD
--- OUTSIDE RECORDS SUMMARY | 2025-01-08 21:51 | XMS RPT_ITS | CCD ---
Author Organization [facility] Care Team Providers Care Slag Skimmer Name Role Phone [facility], [facility] Primary Care Pro vider Jhon LOSS PREVENTION COORDINATOR, LOSS PREVENTION COORDINATOR-C Unique Referring Provider Jhon LOSS PREVENTION COORDINATOR, LOSS PREVENTION COORDINATOR-C Unique Other Provider Dr. Sebastien Orellana Attending [place] [address] Pro vider Jhon LOSS PREVENTION COORDINATOR, LOSS PREVENTION COORDINATOR-C Unique Referring Provider Jhon LOSS PREVENTION COORDINATOR, LOSS PREVENTION COORDINATOR-C Unique Other Provider Dr. Sebastien Orellana Attending [place] [address] [place] [address] Naga Zuniga Attending Provider WILFRIDO Sanchez Attending Provider Dr. Naga Zuniga Other Provider Jhon LOSS PREVENTION COORDINATOR-C, Unique Primary Care Provider Jhon LOSS PREVENTION COORDINATOR-C, Unique Attending Provider Jhon VSC, Unique Attending Unavailabl e Jhon VSC, Unique Primary Care Unavailabl e Jhon VSCHadleyUnique Attending Unavailabl e Jhon VSC, Unique Primary Care Unavailabl e Medications Current Medications Medication Drug Class(es) Dates Sig (Normalized) Sig (Original) Lactobacillus Combination No.4 (Probiotic) 3 billion cell capsule (2 sources) Start: 07-20-2023 Lactobacillus Combination No.4 (Probiotic) 3 billion cell capsule Active 3000 NMA PO DAILY as needed for G[employer] July 20, 2023 1:00am On Hold: FOR PROCEDURE administer with a meal Start: 07-20-2023 take 3 capsules by m outh once daily Lactobacillus Combination No.4 (Probiotic) 3 billion cell capsule Active 3000 MMU CELLS PO DAILY July 20, 2023 1:00am administer with a meal Completed/Discontinued Medications Medication Drug Class(es) Dates Sig (Normalized) Sig (Original) bismuth subsalicylate 262 mg oral tablet (2 sources) Bismuth Start: 07-20-2023 take 8 tablets by mouth every twenty-four hours for diarrhea Bismuth Subsalicylate (Pepto-Bismol) 262 mg tablet Active 524 mg PO Q30M as needed for diarrhea July 20, 2023 1:00am On Hold: FOR PROCEDURE do not exceed 8 doses in a 24 hour period pantoprazole 40 mg delayed release oral tablet (2 sources) Proton Pump Inhibitor Start: 07-20-2023 take 1 tablet by mouth once daily Pantoprazole 40 mg tablet,delayed release (DR/EC) Active 40 mg PO DAILY July 20, 2023 1:00am On Hold: FOR PROCEDURE Problems Active Problems Problem Classification Problem Date Documented Da te Episodic/Chronic Anxiety disorders (1 source) Generalized anxiety disorder; Translations: [Generalized anxiety disorder] Onset: Chronic Esophageal disorders (3 sources) Gastroesophageal reflux disease; Translations: [Gastro-esophageal reflux disease without esophagitis] 07-20-2023 Chronic Comment on above: This is a 48-year-ol d male who presents with a number of GI complaints including acid reflux. This does appear to be his main complaint although he admits that there is significant chronicity with this complaint. He suggest that it has become worse in recent months. It is partially responsive to PPI therapy. He has never undergone EGD for evaluation. There has been a recent weight gain of 15 pounds in recent months. I discussed with him that I would like to proceed with EGD for evaluation for possible hiatal hernia as well as biopsies to assess for any mucosal changes with his history of reflux and smoking. Additionally, patient has a normal BMI and appears distressed by the symptoms so I have recommended consideration of possible antireflux surgery. As part of this workup I have recommended we place a pH probe at the time of his EGD to try to calculate a DeMeester score. Mr. King is receptive of this recommendation and wishes to proceed as described because he would simply like to understand why he is feeling the way he is. Other gastrointestinal disorders (2 sources) Dysphagia; Translations: [Dysphagia, unspecified] 07-20-2023 Episodic Comment on above: Patient describes di fficulty swallowing for years. This is somewhat improved per his report. His descriptions of food becoming stuck and reactive airway history are somewhat suggestive for possible diagnosis of eosinophilic esophagitis. I will plan to get biopsies and look carefully for this diagnosis at the time of the EGD as proposed above. Other gastrointestinal disorders (2 sources) Diarrhea; Translations: [Diarrhea, unspecified] 07-20-2023 Episodic Comment on above: As with constipation , patient's diarrheal symptoms seem minimal now since leaving alcoholism behind. Still, recommending colonoscopy as above Other gastrointestinal disorders (2 sources) Abdominal bloating; Translations: [Abdominal distension (gaseous)] 07-20-2023 Episodic Other gastrointestinal disorders (2 sources) Constipation; Translations: [Constipation, unspecified] 07-20-2023 Episodic Comment on above: Patient describes re latively normal bowel movements since stopping his alcoholism. Yet, with his history and age now greater than 46 with no prior colonoscopic investigation I have recommended we complete a diagnostic colonoscopy in addition to the EGD proposed above. Other gastrointestinal disorders (1 source) Constipation, unspecified; Translations: [Constipation, unspecified] 07-20-2023 Episodic Other gastrointestinal disorders (1 source) Diarrhea, unspecified; Translations: [Diarrhea] 07-20-2023 Episodic Other gastrointestinal disorders (1 source) Dysphagia, unspecified; Translations: [Dysphagia, unspecified] 07-20-2023 Episodic Past or Other Problems Problem Classification Problem Date Documented Da te Episodic/Chronic Malaise and fatigue (1 source) Other fatigue; Translations: [Other fatigue] Onset: 01-20-2024 Episodic Results Test Name Value Interpretation Reference Range Facility [id number] 12-03-2024 COMMENT Normal [facility] Comment on above: Result Comment: TEST RESULTS LIMITS Class Description: Levels of Specific IgE Class Description of Class ----- < 0.10 0 Negative 0.10 - 0.31 0/I Equivocal/Low 0.32 - 0.55 I Low 0.56 - 1.40 II Moderate 1.41 - 3.90 III High 3.91 - 19.00 IV Very High 19.01 - 100.00 V Very High >100.00 Very High [id number] Milk <0.10 kU/L Class 0 Z274-JqF Codfish <0.10 kU/L Class 0 G619-DkU Wheat <0.10 kU/L Class 0 Q184-MsO Watson <0.10 kU/L Class 0 H316-RvE Peanut <0.10 kU/L Class 0 M907-CqF Soybean <0.10 kU/L Class 0 A968-AyY Shrimp <0.10 kU/L Class 0 B117-DpV Pork <0.10 kU/L Class 0 A274-WgN Beef <0.10 kU/L Class 0 B165-JjP Mussel <0.10 kU/L Class 0 E781-LwC Tuna <0.10 kU/L Class 0 W461-EfC [place] <0.10 kU/L Class 0 M146-OvZ Chocolate/Fort Wing[place] <0.10 kU/L Class 0 R607-FqY Egg, Whole <0.10 kU/L Class 0 TESTING PERFORMED AT [facility]. ORIGINAL REPORT ON FILE IN LAB CONTAINS ADDITIONAL TEST SITE INFORMATION. Performed By: #### L 506.1000, L3100.5310, L100.0100, L500.4050, L501.9520, L503.0105 #### [facility] [address] [place], [place], [id number] Absolute lymphocyte countOrd ered By: [facility] Unique Ferreira on 11-21-2024 Lymphocytes Auto (Unsp spec) [#/Vol] 1.65 10*3/uL 0.83-4.51 [facility] Absolute neutrophil countOrd ered By: [facility] Unique Ferreira on 11-21-2024 Neutrophils (Bld) [#/Vol] 5.2 10*3/uL 2.0-7.7 [facility] Anion gap in Serum or Plasma Ordered By: [facility] Unique Jhon on 11-21-2024 Anion gap [Moles/Vol] 13 mmol/L 5- [facility] Automated lymphocyte count a s percentage of total leukocytesOrdered By: [facility] Uniquedeisy Ferreira on 11-21-2024 Lymphocytes/100 WBC Auto (Unsp spec) 21.6 % - [facility] BUN/creatinine ratioOrdered By: [facility] Unique Jhon on 11-21-2024 Urea nitrogen/Creatinine [Mass ratio] 14.6 mg/mg 10- [facility] Basophil percentageOrdered B y: [facility] Unique Jhon on 11-21-2024 Basophils/100 WBC (Bld) 1.2 % High 0-1 [facility] Bilirubin, totalOrdered By: [facility] Unique Jhon on 11-21-2024 Bilirubin [Mass/Vol] 0.48 mg/dL 0.00-1.30 [facility] CBC W/Diff, Automatedon 11-04 Absolute Lymph 1.65 X10 3/uL Normal 0.83-4.51 [facility] Comment on above: Performed By: #### L 501.9520, L506.1001, L5500.0550, L500.4050, L500.4100, L100.0100 #### [facility] [address] [place], [address] Absolute Neut 5.2 X10 3/uL Normal 2.0-7.7 [facility] Comment on above: Performed By: #### L 501.9520, L506.1001, L5500.0550, L500.4050, L500.4100, L100.0100 #### [facility] [address] [place], [address] Basophils/100 WBC (Bld) 1.2 % High 0-1 [facility] Comment on above: Performed By: #### L 501.9520, L506.1001, L5500.0550, L500.4050, L500.4100, L100.0100 #### [facility] [address] [place], [address] Eosinophils/100 WBC (Bld) 2.4 % Normal 0-5 [facility] Comment on above: Performed By: #### L 501.9520, L506.1001, L5500.0550, L500.4050, L500.4100, L100.0100 #### [facility] [address] [place], [address] Erythrocyte distribution width (RBC) [Ratio] 12.9 % Normal 11.6-14.6 [facility] Comment on above: Performed By: #### L 501.9520, L506.1001, L5500.0550, L500.4050, L500.4100, L100.0100 #### [facility] [address] [place], [address] Hematocrit (Bld) [Volume fraction] 38.6 % Low 40-54 [facility] Comment on above: Performed By: #### L 501.9520, L506.1001, L5500.0550, L500.4050, L500.4100, L100.0100 #### [facility] [address] [place], [address] Hemoglobin (Bld) [Mass/Vol] 13.0 g/dL Normal 13.0-16.5 [facility] Comment on above: Performed By: #### L 501.9520, L506.1001, L5500.0550, L500.4050, L500.4100, L100.0100 #### [facility] [address] [place], [address] IG% 0.300 Normal 0.0-0.9 [facility] Comment on above: Result Comment: IG% - Immature Granulocytes (promyelocytes, myelocytes and metamyelocytes) > 1% indicates that a LEFT SHIFT is Present. Performed By: #### L 501.9520, L506.1001, L5500.0550, L500.4050, L500.4100, L100.0100 #### [facility] [address] [place], [address] Lymphocytes/100 WBC (Bld) 21.6 % Normal 19-41 [facility] Comment on above: Performed By: #### L 501.9520, L506.1001, L5500.0550, L500.4050, L500.4100, L100.0100 #### [facility] [address] [place], [address] MCH (RBC) [Entitic mass] 29.2 pg Normal 27.0-32.0 [facility] Comment on above: Performed By: #### L 501.9520, L506.1001, L5500.0550, L500.4050, L500.4100, L100.0100 #### [facility] [address] [place], [address] MCHC (RBC) [Mass/Vol] 33.7 g/dL Normal 32-36 [facility] Comment on above: Performed By: #### L 501.9520, L506.1001, L5500.0550, L500.4050, L500.4100, L100.0100 #### [facility] [address] [place], [address] MCV (RBC) [Entitic vol] 86.7 fL Normal 80-94 [facility] Comment on above: Performed By: #### L 501.9520, L506.1001, L5500.0550, L500.4050, L500.4100, L100.0100 #### [facility] [address] [place], [address] Monocytes/100 WBC (Bld) 6.3 % Normal 0-10 [facility] Comment on above: Performed By: #### L 501.9520, L506.1001, L5500.0550, L500.4050, L500.4100, L100.0100 #### [facility] [address] [place], [address] Neutrophils/100 WBC (Bld) 68.2 % Normal 47-70 [facility] Comment on above: Performed By: #### L 501.9520, L506.1001, L5500.0550, L500.4050, L500.4100, L100.0100 #### [facility] [address] [place], [address] Nucleated RBC (Bld) [#/Vol] 0 10*3/uL Normal 0-5 [facility] Comment on above: Performed By: #### L 501.9520, L506.1001, L5500.0550, L500.4050, L500.4100, L100.0100 #### [facility] [address], [address] Platelet mean volume (Bld) [Entitic vol] 9.2 fL Normal 6.2-12.0 [facility] Comment on above: Performed By: #### L 501.9520, L506.1001, L5500.0550, L500.4050, L500.4100, L100.0100 #### [facility] [address] [place], [address] Platelets (Bld) [#/Vol] 315 10*3/uL Normal 150-450 [facility] Comment on above: Performed By: #### L 501.9520, L506.1001, L5500.0550, L500.4050, L500.4100, L100.0100 #### [facility] [address] [place], [address] RBC (Bld) [#/Vol] 4.45 10*6/uL Low 4.6-6.2 [facility] Comment on above: Performed By: #### L 501.9520, L506.1001, L5500.0550, L500.4050, L500.4100, L100.0100 #### [facility] [address] [place], [address] RDW SD 40.8 fl Normal 35.1-43.9 [facility] Comment on above: Performed By: #### L 501.9520, L506.1001, L5500.0550, L500.4050, L500.4100, L100.0100 #### [facility] [address] [place], [address] WBC (Bld) [#/Vol] 7.6 10*3/uL Normal 4.4-11.0 [facility] Comment on above: Performed By: #### L 501.9520, L506.1001, L5500.0550, L500.4050, L500.4100, L100.0100 #### [facility] [address] [place], [address] Calculated very low density lipoprotein (VLDL) cholesterol measurementOrdered By: Yvonne Ferreira on 11-21-2024 Calculated very low density lipoprotein (VLDL) cholesterol measurement 16 mg/dL 5-40 [facility] Carbon dioxide, total [Moles /volume] in Central venous bloodOrdered By: RG Ferreira on 11-21-2024 CO2 [Moles/Vol] 22.5 mmol/L 21.0-32.0 [facility] Chloride assayOrdered By: GABRIELA Ferreira on 11-21-2024 Chloride [Moles/Vol] 103 mmol/L 98-108 [facility] Comprehensive Metabolic Prof ilon 11-21-2024 Albumin [Mass/Vol] 4.5 g/dL Normal 3.5-5.0 [facility] Comment on above: Performed By: #### L 501.9520, L506.1001, L5500.0550, L500.4050, L500.4100, L100.0100 #### [facility] [address] [place], [address] Albumin/Globulin [Mass ratio] 1.6 {ratio} Normal 0.9-2.4 [facility] Comment on above: Performed By: #### L 501.9520, L506.1001, L5500.0550, L500.4050, L500.4100, L100.0100 #### [facility] [address] [place], [address] ALK PHOS 80 U/L Normal 40-129 [facility] Comment on above: Performed By: #### L 501.9520, L506.1001, L5500.0550, L500.4050, L500.4100, L100.0100 #### [facility] [address] [place], [address] ALT [Catalytic activity/Vol] 11 U/L Normal <=46 [facility] Comment on above: Performed By: #### L 501.9520, L506.1001, L5500.0550, L500.4050, L500.4100, L100.0100 #### [facility] [address] [place], [address] AST [Catalytic activity/Vol] 24 U/L Normal <=37 [facility] Comment on above: Performed By: #### L 501.9520, L506.1001, L5500.0550, L500.4050, L500.4100, L100.0100 #### [facility] [address] [place], [address] Bilirubin [Mass/Vol] 0.48 mg/dL Normal 0.00-1.30 [facility] Comment on above: Performed By: #### L 501.9520, L506.1001, L5500.0550, L500.4050, L500.4100, L100.0100 #### [facility] [address] [place], [address] BUN/CRE 14.6 RATIO Normal 10-20 [facility] Comment on above: Performed By: #### L 501.9520, L506.1001, L5500.0550, L500.4050, L500.4100, L100.0100 #### [facility] [address] [place], [address] Calcium [Mass/Vol] 9.5 mg/dL Normal 7.6-11.0 [facility] Comment on above: Performed By: #### L 501.9520, L506.1001, L5500.0550, L500.4050, L500.4100, L100.0100 #### [facility] [address] [place], [address] Chloride [Moles/Vol] 103 mmol/L Normal 98-108 [facility] Comment on above: Performed By: #### L 501.9520, L506.1001, L5500.0550, L500.4050, L500.4100, L100.0100 #### [facility] [address] [place], [address] CO2 [Moles/Vol] 22.5 mmol/L Normal 21.0-32.0 [facility] Comment on above: Performed By: #### L 501.9520, L506.1001, L5500.0550, L500.4050, L500.4100, L100.0100 #### [facility] [address] [place], [address] Creatinine [Mass/Vol] 1.03 mg/dL Normal 0.70-1.20 [facility] Comment on above: Performed By: #### L 501.9520, L506.1001, L5500.0550, L500.4050, L500.4100, L100.0100 #### [facility] [address] [place], [address] GAP 13 Normal 5-15 [facility] Comment on above: Performed By: #### L 501.9520, L506.1001, L5500.0550, L500.4050, L500.4100, L100.0100 #### [facility] [address] [place], [address] GFR/1.73 sq M.predicted among non-blacks MDRD (S/P/Bld) [Vol rate/Area] 90 mL/min/{1.73_m2} Normal >60 [facility] Comment on above: Result Comment: mL/m in/1.73m2 CKD-EPI Creatinine Equation (2020) Performed By: #### L 501.9520, L506.1001, L5500.0550, L500.4050, L500.4100, L100.0100 #### [facility] [address] [place], [address] Globulin (S) [Mass/Vol] 2.8 g/dL Normal 2.2-4.2 [facility] Comment on above: Performed By: #### L 501.9520, L506.1001, L5500.0550, L500.4050, L500.4100, L100.0100 #### [facility] [address] [place], [address] Glucose [Mass/Vol] 85 mg/dL Normal 70-99 [facility] Comment on above: Performed By: #### L 501.9520, L506.1001, L5500.0550, L500.4050, L500.4100, L100.0100 #### [facility] [address] [place], [address] Potassium [Moles/Vol] 3.8 mmol/L Normal 3.3-5.1 [facility] Comment on above: Performed By: #### L 501.9520, L506.1001, L5500.0550, L500.4050, L500.4100, L100.0100 #### [facility] [address] [place], [address] Sodium [Moles/Vol] 138 mmol/L Normal 133-145 [facility] Comment on above: Performed By: #### L 501.9520, L506.1001, L5500.0550, L500.4050, L500.4100, L100.0100 #### [facility] [address] [place], [address] T PROT 7.3 g/dL Normal 5.9-8.4 [facility] Comment on above: Performed By: #### L 501.9520, L506.1001, L5500.0550, L500.4050, L500.4100, L100.0100 #### [facility] [address] [place], [address] Urea nitrogen [Mass/Vol] 15 mg/dL Normal 4-19 [facility] Comment on above: Performed By: #### L 501.9520, L506.1001, L5500.0550, L500.4050, L500.4100, L100.0100 #### [facility] [address] [place], [address] Eosinophil percentageOrdered By: [facility] Unique Ferreira on 11-21-2024 Eosinophils/100 WBC (Bld) 2.4 % 0-5 [facility] Erythrocyte distribution wid th ratioOrdered By: [facility] Unique Ferreira on 11-21-2024 Erythrocyte distribution width (RBC) [Ratio] 12.9 % 11.6-14.6 [facility] Erythrocyte distribution wid th standard deviationOrdered By: [facility] Unique Ferreira on 11-21-2024 Erythrocyte distribution width (RBC) [Ratio] 40.8 fl 35.1-43.9 [facility] Glomerular filtration rate ( GFR) estimation/1.73 sq m using serum, plasma, or whole bOrdered By: [facility] Unique Ferreira on 11-21-2024 GFR/1.73 sq M.predicted among non-blacks MDRD (S/P/Bld) [Vol rate/Area] 90 mL/min/{1.73_m2} >60 [facility] Comment on above: mL/min/1.73m2 CKD-EP I Creatinine Equation (2020) Hematocrit Auto (Bld) [Volum e fraction]Ordered By: [facility] Unique Ferreira on 11-21-2024 Hematocrit (Bld) [Volume fraction] 38.6 % Low 40-54 [facility] Hemoglobin measurementOrdere d By: [facility] Unique Ferreira on 11-21-2024 Hemoglobin (Bld) [Mass/Vol] 13.0 g/dL 13.0-16.5 [facility] Immature granulocytes/100 WB C Auto (Bld)Ordered By: [facility] Unique Ferreira on 11-21-2024 Immature granulocytes/100 WBC (Bld) 0.300 % 0.0-0.9 [facility] Comment on above: IG% - Immature Granu locytes (promyelocytes, myelocytes and metamyelocytes) > 1% indicates that a LEFT SHIFT is Present. LDL calc ser/plasOrdered By: [facility] Unique Ferreira on 11-21-2024 Cholesterol in LDL [Mass/Vol] 164 mg/dL [facility] Comment on above: Xuaxhdxvlw=147-477 m g/dL & Higher Trym=427 mg/dL or greater Laboratory - Chemistry and C hemistry - challengeOrdered By: [facility] Unique Ferreira on 11-21-2024 AST [Catalytic activity/Vol] 24 U/L <38 [facility] Lipid Profileon 11-21-2024 CHOL:HDL 5.04 Normal [facility] Comment on above: Performed By: #### L 501.9520, L506.1001, L5500.0550, L500.4050, L500.4100, L100.0100 #### [facility] [address] [place], [address] Cholesterol [Mass/Vol] 225 mg/dL High <=200 [facility] Comment on above: Result Comment: Chol esterol level, Desirable <200 mg/dL Borderline high cholesterol 200-239 mg/dL High cholesterol >=240 mg/dL Recommendations of the NCEP Adult Treatment Panel for the following risk-cutoff thresholds for the [place] population. Performed By: #### L 501.9520, L506.1001, L5500.0550, L500.4050, L500.4100, L100.0100 #### [facility] [address] [place], [address] Cholesterol in HDL [Mass/Vol] 45 mg/dL Normal [facility] Comment on above: Result Comment: Jenny onal Cholesterol Education Program (NCEP) guidelines: <40 mg/dL: Low HDL-cholesterol (major risk factor for CHD) >= 60 mg/dL: High HDL-cholesterol (negative risk factor for CHD) HDL-cholesterol is affected by a number of factors, e.g. smoking, exercise, hormones, sex and age. Performed By: #### L 501.9520, L506.1001, L5500.0550, L500.4050, L500.4100, L100.0100 #### [facility] [address] [place], [address] Cholesterol in LDL [Mass/Vol] 164 mg/dL Normal [facility] [facility] Comment on above: Result Comment: Bord tnnlbh=389-114 mg/dL Higher Irap=429 mg/dL or greater Performed By: #### L 501.9520, L506.1001, L5500.0550, L500.4050, L500.4100, L100.0100 #### [facility] [address] [place], [address] Cholesterol in VLDL [Mass/Vol] 16 mg/dL Normal 5-40 [facility] Comment on above: Performed By: #### L 501.9520, L506.1001, L5500.0550, L500.4050, L500.4100, L100.0100 #### [facility] [address] [place], [address] Triglyceride [Mass/Vol] 81 mg/dL Normal [facility] Comment on above: Result Comment: The drugs N-Acetylcysteine and Metamizole may falsely depress this assay. Normal range: <150 mg/dL Borderline High: 150-199 mg/dL High: 200-499 mg/dL Very High: >500 mg/dL Performed By: #### L 501.9520, L506.1001, L5500.0550, L500.4050, L500.4100, L100.0100 #### [facility] [address] [place], [place], [id number] MCV (mean corpuscular volume ) determinationOrdered By: [facility] Unique Ferreira on 11-21-2024 MCV (RBC) [Entitic vol] 86.7 fL 80-94 [facility] Mean corpuscular hemoglobin (MCH) determinationOrdered By: [facility] Unique Ferreira on 11-21-2024 MCH (RBC) [Entitic mass] 29.2 pg 27.0-32.0 [facility] Mean corpuscular hemoglobin concentration (MCHC) determinationOrdered By: [facility] Unique Ferreira on 11-21-2024 MCHC (RBC) [Mass/Vol] 33.7 g/dL 32-36 [facility] Mean platelet volume determi nationOrdered By: [facility] Unique Ferreira on 11-21-2024 Platelet mean volume (Bld) [Entitic vol] 9.2 fL 6.2-12.0 [facility] Monocyte percentageOrdered B y: RG Ferreira on 11-21-2024 Monocytes/100 WBC (Bld) 6.3 % 0-10 [facility] Neutrophil percentageOrdered By: [facility] Unique Ferreira on 11-21-2024 Neutrophils/100 WBC (Bld) 68.2 % 47-70 [facility] Nucleated red blood cell per centageOrdered By: [facility] Unique Ferreira on 11-21-2024 Nucleated RBC/100 WBC (Bld) [Ratio] 0 % 0-5 [facility] Platelet countOrdered By: [facility] Unique Ferreira on 11-21-2024 Platelets (Bld) [#/Vol] 315 10*3/uL 150-450 [facility] Potassium measurement (mass/ volume)Ordered By: [facility] Unique Ferreira on 11-21-2024 Potassium (Unsp spec) [Mass/Vol] 3.8 mmol/L 3.3-5.1 [facility] RBC Auto (Bld) [#/Vol]Ordere d By: [facility] Unique Ferreira on 11-21-2024 RBC (Bld) [#/Vol] 4.45 10*6/uL Low 4.6-6.2 [facility] Screening total cholesterol/ high density lipoprotein (HDL) cholesterol ratioOrdered By: [facility] Unique Ferreira on 11-21-2024 Cholesterol.total/Mechelle sterol in HDL [Mass ratio] 5.04 {ratio} [facility] Serum creatinine measurement (mass/volume)Ordered By: [facility] Unique Ferreira on 11-21-2024 Creatinine [Mass/Vol] 1.03 mg/dL 0.70-1.20 [facility] Serum globulin measurementOr dered By: [facility] Unique Ferreira on 11-21-2024 Globulin (S) [Mass/Vol] 2.8 g/dL 2.2-4.2 [facility] Serum glucose measurement (m ass/volume)Ordered By: [facility] Unique Ferreira on 11-21-2024 Glucose [Mass/Vol] 85 mg/dL 70-99 [facility] Serum or plasma alanine kee otransferase (ALT) measurementOrdered By: [facility] Unique Ferreira on 11-21-2024 ALT [Catalytic activity/Vol] 11 U/L <47 [facility] Serum or plasma albumin norma urement (mass/volume)Ordered By: [facility] Unique Ferreira on 11-21-2024 Albumin [Mass/Vol] 4.5 g/dL 3.5-5.0 [facility] Serum or plasma albumin/glob ulin mass ratioOrdered By: [facility] Unique Ferreira on 11-21-2024 Albumin/Globulin [Mass ratio] 1.6 {ratio} 0.9-2.4 [facility] Serum or plasma alkaline iron sphatase measurementOrdered By: [facility] Jhon on 11-21-2024 ALP [Catalytic activity/Vol] 80 U/L 40-129 [facility] Serum or plasma calcium norma urement (mass/volume)Ordered By: [facility] Jhon on 11-21-2024 Calcium [Mass/Vol] 9.5 mg/dL 7.6-11.0 [facility] Serum or plasma cholesterol in HDL measurement (mass/volume)Ordered By: [facility] Jhon on 11-21-2024 Cholesterol in HDL [Mass/Vol] 45 mg/dL >40 [facility] Comment on above: National Cholesterol Education Program (NCEP) guidelines:<40 mg/dL: Low HDL-cholesterol (major risk factor for CHD)>= 60 mg/dL: High HDL-cholesterol (negative risk factor for CHD)HDL-cholesterol is affected by a number of factors, e.g. smoking, exercise, hormones, sex and age. Serum or plasma cholesterol measurement (mass/volume)Ordered By: [facility] Jhon on 11-21-2024 Cholesterol [Mass/Vol] 225 mg/dL High <201 [facility] Comment on above: Cholesterol level, D esirable <200 mg/dLBorderline high cholesterol 200-239 mg/dLHigh cholesterol >=240 mg/dLRecommendations of the NCEP Adult Treatment Panel for the following risk-cutoff thresholds for the [place] population. Serum or plasma urea nitroge n measurement (mass/volume)[facility] Urea nitrogen [Mass/Vol] 15 mg/dL 4-19 [facility] Sodium levelOrdered By: [facility] Jhon on 11-21-2024 Sodium [Moles/Vol] 138 mmol/L 133-145 [facility] TSH DL <= 0.005 mIU/L QnOrde red By: [facility] 11-21-2024 TSH Qn 2.220 uIU/mL 0.300-4.200 [facility] Thyroid Stim Hormone (TSH)on 11-21-2024 TSH 2.220 uIU/mL Normal 0.300-4.200 [facility] Comment on above: Performed By: #### L 501.9520, L506.1001, L5500.0550, L500.4050, L500.4100, L100.0100 #### [facility] [address] [place], [address] Total proteinOrdered By: [facility] Unique Ferreira on 11-21-2024 Protein [Mass/Vol] 7.3 g/dL 5.9-8.4 [facility] Triglycerides measurementOrd ered By: [facility] Unique Ferreira on 11-21-2024 Triglyceride [Mass/Vol] 81 mg/dL <199 [facility] Comment on above: The drugs N-Acetylcy steine and Metamizole may falsely depress this assay. Normal range: <150 mg/dLBorderline High: 150-199 mg/dLHigh: 200-499 mg/dLVery High: >500 mg/dL Vitamin D,25 Hydroxyon 11-21 Vitamin D 25-OH 56.8 ng/mL Normal 30-100 [facility] Comment on above: Result Comment: Vida min D Status Deficiency: <20 ng/mL (50nmol/L) Insufficiency: 20-30 ng/mL (50-75 nmol/L) Sufficiency: 30-100 ng/mL (75-250 nmol/L) Toxicity: >100 ng/mL (>250 nmol/L) Performed By: #### L 506.1000, L3100.5310, L100.0100, L500.4050, L501.9520, L503.0105 #### [facility] [address] [place], [address] White blood cell (WBC) count Ordered By: [facility] Unique Ferreira on 11-21-2024 WBC (Bld) [#/Vol] 7.6 10*3/uL 4.4-11.0 [facility] Testosterone, Total / Freeon 01-05-2024 TESTOSTER,FREE 12.98 ng/dL Normal 5.00-21.00 [facility] Comment on above: Order Comment: N Performed By: #### L 506.1000, L3100.5310, L100.0100, L500.4050, L501.9520, L503.0105 #### [facility] [address] [place], [address] TESTOSTERONE, T 454 ng/dL Normal 264-916 [facility] Comment on above: Order Comment: N Result Comment: Adul t male reference interval is based on a population of healthy nonobese males (BMI <30) between 19 and 39 years old. eryn Mack.al. JCEM 2017,102;0271-6342. PMID: [id number]. Performed By: #### L 506.1000, L3100.5310, L100.0100, L500.4050, L501.9520, L503.0105 #### [facility] [address] [place], [place], [id number] [phone] TESTOSTERONE,%F 2.86 Normal 1.50-4.20 [facility] Comment on above: Order Comment: N Result Comment: Perf ormed at: [facility] [address] [id number] [employer]can[employer] Charger: Chriss Hutchins PhD, Phone: [phone] Performed at: [facility] [address] [id number] [employer] Charger: Chayito Alvarado MD, Phone: [phone] Performed By: #### L 506.1000, L3100.5310, L100.0100, L500.4050, L501.9520, L503.0105 #### [facility] [address] [place], [place], [address] CBC W/Diff, Automatedon 07-2 Absolute Lymph 1.83 X10 3/uL Normal 0.83-4.51 [facility] Comment on above: Performed By: #### L 506.1000, L3100.5310, L100.0100, L500.4050, L501.9520, L503.0105 #### [facility] [address] [place], [address] Absolute Neut 4.8 X10 3/uL Normal 2.0-7.7 [facility] Comment on above: Performed By: #### L 506.1000, L3100.5310, L100.0100, L500.4050, L501.9520, L503.0105 #### [facility] [address] [place], [address] Basophils/100 WBC (Bld) 1.2 % High 0-1 [facility] Comment on above: Performed By: #### L 506.1000, L3100.5310, L100.0100, L500.4050, L501.9520, L503.0105 #### [facility] [address] [place], [address] Eosinophils/100 WBC (Bld) 4.5 % Normal 0-5 [facility] Comment on above: Performed By: #### L 506.1000, L3100.5310, L100.0100, L500.4050, L501.9520, L503.0105 #### [facility] [address] [place], [address] Erythrocyte distribution width (RBC) [Ratio] 13.1 % Normal 11.6-14.6 [facility] Comment on above: Performed By: #### L 506.1000, L3100.5310, L100.0100, L500.4050, L501.9520, L503.0105 #### [facility] [address] [place], [address] Hematocrit (Bld) [Volume fraction] 40.9 % Normal 40-54 [facility] Comment on above: Performed By: #### L 506.1000, L3100.5310, L100.0100, L500.4050, L501.9520, L503.0105 #### [facility] [address] [place], [address] Hemoglobin (Bld) [Mass/Vol] 13.7 g/dL Normal 13.0-16.5 [facility] Comment on above: Performed By: #### L 506.1000, L3100.5310, L100.0100, L500.4050, L501.9520, L503.0105 #### [facility] [address] [place], [address] IG% 0.300 Normal 0.0-0.9 [facility] Comment on above: Result Comment: IG% - Immature Granulocytes (promyelocytes, myelocytes and metamyelocytes) > 1% indicates that a LEFT SHIFT is Present. Performed By: #### L 506.1000, L3100.5310, L100.0100, L500.4050, L501.9520, L503.0105 #### [facility] [address] [place], [address] Lymphocytes/100 WBC (Bld) 24.1 % Normal 19-41 [facility] Comment on above: Performed By: #### L 506.1000, L3100.5310, L100.0100, L500.4050, L501.9520, L503.0105 #### [facility] [address] [place], [address] MCH (RBC) [Entitic mass] 29.4 pg Normal 27.0-32.0 [facility] Comment on above: Performed By: #### L 506.1000, L3100.5310, L100.0100, L500.4050, L501.9520, L503.0105 #### [facility] [address] [facility] [place], [address] MCHC (RBC) [Mass/Vol] 33.5 g/dL Normal 32-36 [facility] Comment on above: Performed By: #### L 506.1000, L3100.5310, L100.0100, L500.4050, L501.9520, L503.0105 #### [facility] [address] [place], [address] MCV (RBC) [Entitic vol] 87.8 fL Normal 80-94 [facility] Comment on above: Performed By: #### L 506.1000, L3100.5310, L100.0100, L500.4050, L501.9520, L503.0105 #### [facility] [address] [place], [address] Monocytes/100 WBC (Bld) 6.3 % Normal 0-10 [facility] Comment on above: Performed By: #### L 506.1000, L3100.5310, L100.0100, L500.4050, L501.9520, L503.0105 #### [facility] [address] [place], [address] Neutrophils/100 WBC (Bld) 63.6 % Normal 47-70 [facility] Comment on above: Performed By: #### L 506.1000, L3100.5310, L100.0100, L500.4050, L501.9520, L503.0105 #### [facility] [address] [place], [address] Nucleated RBC (Bld) [#/Vol] 0 10*3/uL Normal 0-5 [facility] Comment on above: Performed By: #### L 506.1000, L3100.5310, L100.0100, L500.4050, L501.9520, L503.0105 #### [facility] [address] [place], [address] Platelet mean volume (Bld) [Entitic vol] 9.6 fL Normal 6.2-12.0 [facility] Comment on above: Performed By: #### L 506.1000, L3100.5310, L100.0100, L500.4050, L501.9520, L503.0105 #### [facility] [address] [place], [address] Platelets (Bld) [#/Vol] 355 10*3/uL Normal 150-450 [facility] Comment on above: Performed By: #### L 506.1000, L3100.5310, L100.0100, L500.4050, L501.9520, L503.0105 #### [facility] [address] [place], [address] RBC (Bld) [#/Vol] 4.66 10*6/uL Normal 4.6-6.2 [facility] Comment on above: Performed By: #### L 506.1000, L3100.5310, L100.0100, L500.4050, L501.9520, L503.0105 #### [facility] [address] [place], [address] RDW SD 41.5 fl Normal 35.1-43.9 [facility] Comment on above: Performed By: #### L 506.1000, L3100.5310, L100.0100, L500.4050, L501.9520, L503.0105 #### [facility] [address] [place], [address] WBC (Bld) [#/Vol] 7.6 10*3/uL Normal 4.4-11.0 [facility] Comment on above: Performed By: #### L 506.1000, L3100.5310, L100.0100, L500.4050, L501.9520, L503.0105 #### [facility] [address] [place], [address] Comprehensive Metabolic [facility] 12-29-2023 Albumin [Mass/Vol] 4.1 g/dL Normal 3.2-5.0 [facility] Comment on above: Performed By: #### L 506.1000, L3100.5310, L100.0100, L500.4050, L501.9520, L503.0105 #### [facility] [address] [place], [address] Albumin/Globulin [Mass ratio] 1.1 {ratio} Normal 0.9-2.4 [facility] Comment on above: Performed By: #### L 506.1000, L3100.5310, L100.0100, L500.4050, L501.9520, L503.0105 #### [facility] [address] [place], [address] ALK P 80 U/L Normal 45-117 [facility] Comment on above: Performed By: #### L 506.1000, L3100.5310, L100.0100, L500.4050, L501.9520, L503.0105 #### [facility] [address] [place], [address] ALT [Catalytic activity/Vol] 24 U/L Normal 16-61 [facility] Comment on above: Performed By: #### L 506.1000, L3100.5310, L100.0100, L500.4050, L501.9520, L503.0105 #### [facility] [address] [place], [address] AST [Catalytic activity/Vol] 27 U/L Normal 15-37 [facility] Comment on above: Performed By: #### L 506.1000, L3100.5310, L100.0100, L500.4050, L501.9520, L503.0105 #### [facility] [address] [place], [address] Bilirubin [Mass/Vol] 0.30 mg/dL Normal 0.20-1.00 [facility] Comment on above: Result Comment: For patients on eltrombopag therapy, use of Dimension [place] TBIL is not recommended. Performed By: #### L 506.1000, L3100.5310, L100.0100, L500.4050, L501.9520, L503.0105 #### [facility] [address] [place], [address] BUN/CRE 14.9 RATIO Normal 10-20 [facility] Comment on above: Performed By: #### L 506.1000, L3100.5310, L100.0100, L500.4050, L501.9520, L503.0105 #### [facility] [address] [place], [address] CA,Total 9.2 mg/dL Normal 8.5-10.1 [facility] Comment on above: Performed By: #### L 506.1000, L3100.5310, L100.0100, L500.4050, L501.9520, L503.0105 #### [facility] [address] [place], [address] Chloride [Moles/Vol] 108 mmol/L High 98-107 [facility] Comment on above: Performed By: #### L 506.1000, L3100.5310, L100.0100, L500.4050, L501.9520, L503.0105 #### [facility] [address] [place], [address] CO2 [Moles/Vol] 24.0 mmol/L Normal 21.0-32.0 [facility] Comment on above: Performed By: #### L 506.1000, L3100.5310, L100.0100, L500.4050, L501.9520, L503.0105 #### [facility] [address] [place], [address] Creatinine [Mass/Vol] 1.01 mg/dL Normal 0.70-1.30 [facility] Comment on above: Result Comment: The validity of the calculated GFR GFRAA in patients over 70 years has not been determined. Clinical correlation is essential. Performed By: #### L 506.1000, L3100.5310, L100.0100, L500.4050, L501.9520, L503.0105 #### [facility] [address] [place], [address] EST GFR - AA 101 mL/min Normal >60 [facility] Comment on above: Result Comment: Afri can Brazilian GFR Calc Performed By: #### L 506.1000, L3100.5310, L100.0100, L500.4050, L501.9520, L503.0105 #### [facility] [address] [place], [address] GAP 7 Normal 5-15 [facility] Comment on above: Performed By: #### L 506.1000, L3100.5310, L100.0100, L500.4050, L501.9520, L503.0105 #### [facility] [address] [place], [address] GFR/1.73 sq M.predicted among non-blacks MDRD (S/P/Bld) [Vol rate/Area] 84 mL/min/{1.73_m2} Normal >60 [facility] Comment on above: Result Comment: Non- GFR Calc Performed By: #### L 506.1000, L3100.5310, L100.0100, L500.4050, L501.9520, L503.0105 #### [facility] [address] [place], [address] Globulin (S) [Mass/Vol] 3.6 g/dL Normal 2.2-4.2 [facility] Comment on above: Performed By: #### L 506.1000, L3100.5310, L100.0100, L500.4050, L501.9520, L503.0105 #### [facility] [address] [place], [address] Glucose [Mass/Vol] 120 mg/dL High 74-106 [facility] Comment on above: Result Comment: Fast ing Glucose result from 100 to 125 mg/dL suggests IMPAIRED HOMEOSTASIS per A.D.A. criteria. Performed By: #### L 506.1000, L3100.5310, L100.0100, L500.4050, L501.9520, L503.0105 #### [facility] [address] [place], [address] Potassium [Moles/Vol] 3.4 mmol/L Low 3.5-5.1 [facility] Comment on above: Performed By: #### L 506.1000, L3100.5310, L100.0100, L500.4050, L501.9520, L503.0105 #### [facility] [address] [place], [address] Sodium [Moles/Vol] 139 mmol/L Normal 136-145 [facility] Comment on above: Performed By: #### L 506.1000, L3100.5310, L100.0100, L500.4050, L501.9520, L503.0105 #### [facility] [address] [place], [address] T PROT 7.7 g/dL Normal 6.4-8.2 [facility] Comment on above: Performed By: #### L 506.1000, L3100.5310, L100.0100, L500.4050, L501.9520, L503.0105 #### [facility] [address] [place], [address] Urea nitrogen [Mass/Vol] 15 mg/dL Normal 7-18 [facility] Comment on above: Performed By: #### L 506.1000, L3100.5310, L100.0100, L500.4050, L501.9520, L503.0105 #### [facility] [address] [place], [address] Thyroid Stim Hormone (TSH)on 12-29-2023 TSH 1.74 uIU/mL Normal 0.358-3.74 [facility] Comment on above: Performed By: #### L 506.1000, L3100.5310, L100.0100, L500.4050, L501.9520, L503.0105 #### [facility] [address] [place], [address] Vitamin B12on 12-29-2023 Cobalamin (Vitamin B12) [Mass/Vol] 599 pg/mL Normal 211-911 [facility] Comment on above: Performed By: #### L 506.1000, L3100.5310, L100.0100, L500.4050, L501.9520, L503.0105 #### [facility] [address] [place], [address] Vitamin D,25 Hydroxyon 12-28 Vitamin D 25-OH 19.7 ng/mL Normal [facility] Comment on above: Result Comment: Vida min D 25(OH) Status Range Deficiency <20 ng/mL (50nmol/L) Insufficiency 20 - 30 ng/mL (50 - 75 nmol/L) Sufficiency 30 - 100 ng/mL (75 - 250 nmol/L) Toxicity >100 ng/mL (>250 nmol/L) Performed By: #### L 506.1000, L3100.5310, L100.0100, L500.4050, L501.9520, L503.0105 #### [facility] [address] [place], [address] 25(OH)D3 [facility] 25-hydroxyvitamin D3 [Mass/Vol] 11.9 ng/mL Low 31.0-80.0 [facility] Comment on above: Order Comment: Speci men Type: BLOOD SPECIMEN Ordering Facility: [facility] Address: [address] [place] [address], [place] [address] Result Comment: Clas sification of 25 [place] Vitamin D status: Deficiency/Insufficiency: < or = 30 ng/ml. Sufficiency/Optimal Levels: 31-80 ng/mL Toxicity: > 100 ng/mL. Test performed by chemiluminescent immunoassay. Performed By: #### 1 989-3 #### [facility] CLIA [id number] [address] [place] [address] [place] CBC W Auto Differential pane l (Bld)on 06-15-2023 Basophils (Bld) [#/Vol] 0.12 10*3/uL High <0.11 [facility] Comment on above: Order Comment: Speci men Type: BLOOD SPECIMEN Ordering Facility: [facility] Address: [address] [place] [address] Performed By: #### 5 7021-8 #### [facility] CLIA [id number] [address] [place] [address] [place] Basophils/100 WBC (Bld) 1.6 % Normal C [facility] Comment on above: Order Comment: Speci men Type: BLOOD SPECIMEN Ordering Facility: [facility] Address: [address] [place] [address] Performed By: #### 5 7021-8 #### [facility] CLIA [id number] [address] [place] [address] STATES OF [facility] Differential cell count method Nom (Bld) Auto Normal [facility] Comment on above: Order Comment: Speci men Type: BLOOD SPECIMEN Ordering Facility: [facility] Address: [address] [place] [address] Performed By: #### 5 7021-8 #### [facility] CLIA [id number] [address] [place] [address] [place] Eosinophils (Bld) [#/Vol] 0.34 10*3/uL Normal <0.46 [facility] Comment on above: Order Comment: Speci men Type: BLOOD SPECIMEN Ordering Facility: [facility] Address: [address] [place] [address] Performed By: #### 5 7021-8 #### [facility] CLIA [id number] [address] [place] [address] [place] Eosinophils/100 WBC (Bld) 4.5 % Normal [facility] Comment on above: Order Comment: Speci men Type: BLOOD SPECIMEN Ordering Facility: [facility] Address: [address] [place] [address] Performed By: #### 5 7021-8 #### [facility] CLIA [id number] [address] [place] [address] [place] Erythrocyte distribution width (RBC) [Ratio] 13.0 % Normal 11.5-15.0 [facility] Comment on above: Order Comment: Speci men Type: BLOOD SPECIMEN Ordering Facility: [facility] Address: [address] [place] [address] Performed By: #### 5 7021-8 #### [facility] CLIA [id number] [address] [place] [address] [place] Hematocrit (Bld) [Volume fraction] 39.7 % Normal 39.0-51.0 [facility] Comment on above: Order Comment: Speci men Type: BLOOD SPECIMEN Ordering Facility: [facility] Address: [address] [place] [address] Performed By: #### 5 7021-8 #### [facility] CLIA [id number] [address] [place] [id number] [place] Hemoglobin (Bld) [Mass/Vol] 13.1 g/dL Normal 13.0-17.0 [facility] Comment on above: Order Comment: Speci men Type: BLOOD SPECIMEN Ordering Facility: [facility] Address: [address] [place] [address] Performed By: #### 5 7021-8 #### [facility] CLIA [id number] [address] [id number] [address] [place] Immature granulocytes (Bld) [#/Vol] 10*3/uL Normal <0.10 [facility] Comment on above: Order Comment: Speci men Type: BLOOD SPECIMEN Ordering Facility: [facility] Address: [address] [place] [address] Performed By: #### 5 7021-8 #### [facility] CLIA [id number] [address] [place] [address] [place] Immature granulocytes/100 WBC (Bld) 0.3 % Normal [facility] Comment on above: Order Comment: Speci men Type: BLOOD SPECIMEN Ordering Facility: [facility] Address: [address] [place] [address] Performed By: #### 5 7021-8 #### [facility] CLIA [id number] [address] [place] [address] [place] Lymphocytes (Bld) [#/Vol] 2.09 10*3/uL Normal 1.00-4.00 [facility] Comment on above: Order Comment: Speci men Type: BLOOD SPECIMEN Ordering Facility: [facility] Address: [address] [place] [address] Performed By: #### 5 7021-8 #### [facility] CLIA [id number] [address] [place] [address] [place] Lymphocytes/100 WBC (Bld) 27.6 % Normal [facility] Comment on above: Order Comment: Speci men Type: BLOOD SPECIMEN Ordering Facility: [facility] Address: [address] [place] [address] Performed By: #### 5 7021-8 #### [facility] CLIA [id number] [address] [place] [address] [place] MCH (RBC) [Entitic mass] 29.4 pg Normal 26.0-34.0 [facility] Comment on above: Order Comment: Speci men Type: BLOOD SPECIMEN Ordering Facility: [facility] Address: [address] [place] [address], [place] [address] Performed By: #### 5 7021-8 #### [facility] CLIA [id number] [address] [place] [address] [place] MCHC (RBC) [Mass/Vol] 33.0 g/dL Normal 30.5-36.0 [facility] Comment on above: Order Comment: Speci men Type: BLOOD SPECIMEN Ordering Facility: [facility] Address: [address] [place] [address], [place] [address] Performed By: #### 5 7021-8 #### [facility] CLIA [id number] [address] [place] [address] [place] MCV (RBC) [Entitic vol] 89.0 fL Normal 80.0-100.0 [facility] Comment on above: Order Comment: Speci men Type: BLOOD SPECIMEN Ordering Facility: [facility] Address: [address] [place] [address] Performed By: #### 5 7021-8 #### [facility] CLIA [id number] [address] [place] [address] [place] Monocytes (Bld) [#/Vol] 0.59 10*3/uL Normal <0.87 [facility] Comment on above: Order Comment: Speci men Type: BLOOD SPECIMEN Ordering Facility: [facility] Address: [address] [place] [address] Performed By: #### 5 7021-8 #### [facility] CLIA [id number] [address] [place] [address] [place] Monocytes/100 WBC (Bld) 7.8 % Normal [facility] Comment on above: Order Comment: Speci men Type: BLOOD SPECIMEN Ordering Facility: [facility] Address: [address] [place] [address], [place] [address] Performed By: #### 5 7021-8 #### [facility] CLIA [id number] [address] [place] [address] [place] Neutrophils (Bld) [#/Vol] 4.41 10*3/uL Normal 1.45-7.50 [facility] Comment on above: Order Comment: Speci men Type: BLOOD SPECIMEN Ordering Facility: [facility] Address: [address] [place] [address] Performed By: #### 5 7021-8 #### [facility] CLIA [id number] [address] [place] [address] [place] Neutrophils/100 WBC (Bld) 58.2 % Normal [facility] Comment on above: Order Comment: Speci men Type: BLOOD SPECIMEN Ordering Facility: [facility] Address: [address] [place] [address] Performed By: #### 5 7021-8 #### [facility] CLIA [id number] [address] [place] [address] [place] Nucleated RBC (Bld) [#/Vol] 10*3/uL Normal <0.01 [facility] Comment on above: Order Comment: Speci men Type: BLOOD SPECIMEN Ordering Facility: [facility] Address: [address] [place] [address] Performed By: #### 5 7021-8 #### [facility] CLIA [id number] [address] [place] [address] [place] Nucleated RBC/100 WBC (Bld) [Ratio] 0.0 /100 WBC Normal [facility] Comment on above: Order Comment: Speci men Type: BLOOD SPECIMEN Ordering Facility: [facility] Address: [address] [place] [address] Performed By: #### 5 7021-8 #### [facility] CLIA [id number] [address] [place] [address] [place] Platelet mean volume (Bld) [Entitic vol] 10.4 fL Normal 9.0-12.7 [facility] Comment on above: Order Comment: Speci men Type: BLOOD SPECIMEN Ordering Facility: [facility] Address: [address] [place] [address] Performed By: #### 5 7021-8 #### [facility] CLIA [id number] [address] [place] [address] [place] Platelets (Bld) [#/Vol] 353 10*3/uL Normal 150-400 [facility] Comment on above: Order Comment: Speci men Type: BLOOD SPECIMEN Ordering Facility: [facility] Address: [address] [place] [address] Performed By: #### 5 7021-8 #### [facility] CLIA [id number] [address] [place] [address] [place] RBC (Bld) [#/Vol] 4.46 10*6/uL Normal 4.20-6.00 [facility] Comment on above: Order Comment: Speci men Type: BLOOD SPECIMEN Ordering Facility: [facility] Address: [address] [place] [address] Performed By: #### 5 7021-8 #### [facility] CLIA [id number] [address] [place] [address] [place] WBC (Bld) [#/Vol] 7.57 10*3/uL Normal 3.70-11.00 [facility] Comment on above: Order Comment: Speci men Type: BLOOD SPECIMEN Ordering Facility: [facility] Address: [address] [place] [address] Performed By: #### 5 7021-8 #### [facility] CLIA [id number] [facility] [address] [address] [place] Comprehensive metabolic 2000 panelon 06-15-2023 Albumin [Mass/Vol] 4.3 g/dL Normal 3.9-4.9 [facility] Comment on above: Order Comment: Speci men Type: BLOOD SPECIMEN Ordering Facility: [facility] Address: [address] [facility], [place] [address] Performed By: #### 2 132-9, 3015-3, 55562-5 #### [facility] CLIA [id number] [address] [address] [place] Performed By: #### 2 4323-8, 9, 3015-3 #### [facility] CLIA [id number] [address] [address] [place] ALP [Catalytic activity/Vol] 73 U/L Normal 38-113 [facility] Comment on above: Order Comment: Speci men Type: BLOOD SPECIMEN Ordering Facility: [facility] Address: [facility] [facility] [address], [place] [address] Performed By: #### 2 132-9, 3, #### [facility] CLIA [id number] [address] [place] [address] [place] Performed By: #### 2 4323-8, 2132-02, 3 #### [facility] CLIA [id number] [address] [address] [place] ALT [Catalytic activity/Vol] 32 U/L Normal 10-54 [facility] Comment on above: Order Comment: Speci men Type: BLOOD SPECIMEN Ordering Facility: [facility] Address: [address] [facility] [facility], [place] [address] Performed By: #### 2 132-9, 6-3, 06425-6 #### [facility] CLIA [id number] [address] [address] [place] Performed By: #### 2 4323-8, 2131-9, 3015-3 #### [facility] CLIA [id number] [address] [place] [address] [place] Anion gap [Moles/Vol] 12 mmol/L Normal 9-18 [facility] Comment on above: Order Comment: Speci men Type: BLOOD SPECIMEN Ordering Facility: [facility] Address: [address] [place] [address], [place] [address] Performed By: #### 2 132-9, 3016-3, 03511-3 #### [facility] CLIA [id number] [address] [place] [address] [place] Performed By: #### 2 4323-8, 2131-9, 3015-3 #### [facility] CLIA [id number] [address] [place] [address] [place] AST [Catalytic activity/Vol] 43 U/L High 14-40 [facility] Comment on above: Order Comment: Speci men Type: BLOOD SPECIMEN Ordering Facility: [facility] Address: [address] [place] [address], [place] [address] Performed By: #### 2 132-9, 6-3, 86460-4 #### [facility] CLIA [id number] [address] [place] [address] [place] Performed By: #### 2 4323-8, 213-9, 3015-3 #### [facility] CLIA [id number] [address] [place] [address] [place] Bilirubin [Mass/Vol] 0.2 mg/dL Normal 0.2-1.3 [facility] Comment on above: Order Comment: Speci men Type: BLOOD SPECIMEN Ordering Facility: [facility] Address: [address] [place] [address], [place] [address] Performed By: #### 2 132-9, 3016-3, 70976-2 #### [facility] CLIA [id number] [address] [place] Performed By: #### 2 4323-8, 2132-02, 3 #### [facility] CLIA [id number] [address] [address] [place] Calcium [Mass/Vol] 9.5 mg/dL Normal 8.5-10.2 [facility] Comment on above: Order Comment: Speci men Type: BLOOD SPECIMEN Ordering Facility: [facility] Address: [address] [place] [address], [place] [address] Performed By: #### 2 132-9, 3, 95375-8 #### [facility] CLIA [id number] [address] [place] [address] [place] Performed By: #### 2 4323-8, 2132-02, 3 #### [facility] CLIA [id number] [address] [place] [address] [place] Chloride [Moles/Vol] 106 mmol/L High 97-105 [facility] Comment on above: Order Comment: Speci men Type: BLOOD SPECIMEN Ordering Facility: [facility] Address: [address] [place] [address], [place] [address] Performed By: #### 2 132-9, 3, #### [facility] CLIA [id number] [address] [place] [address] [place] Performed By: #### 2 4323-8, 2132-02, 3 #### [facility] CLIA [id number] [address] [address] [place] CO2 [Moles/Vol] 21 mmol/L Low 22-30 [facility] Comment on above: Order Comment: Speci men Type: BLOOD SPECIMEN Ordering Facility: [facility] Address: [address] [place] [address], [place] [address] Performed By: #### 2 132-9, 3, #### [facility] CLIA [id number] [address] [address] [facility] Performed By: #### 2 4323-8, 2-9, 3 #### [facility] CLIA [id number] [address] [address] [place] Creatinine [Mass/Vol] 0.93 mg/dL Normal 0.73-1.22 [facility] Comment on above: Order Comment: Speci men Type: BLOOD SPECIMEN Ordering Facility: [facility] Address: [address] [place] [address], [place] [address] Performed By: #### 2 132-9, 3, #### [facility] CLIA [id number] [address] [address] [facility] Performed By: #### 2 4323-8, 2132-02, 3015-08 #### [facility] CLIA [id number] [address] [address] [place] Creatinine and Glomerular filtration rate.predicted panel (S/P/Bld) 102 mL/min/1.73m??? Normal >=60 [facility] Comment on above: Order Comment: Speci men Type: BLOOD SPECIMEN Ordering Facility: [facility] Address: [address] [place] [address], [place] [address] Result Comment: Juani mated Glomerular Filtration Rate (eGFR) is calculated using the 2020 CKD-EPI creatinine equation. This equation utilizes serum creatinine, sex, and age as parameters. The creatinine assay has traceable calibration to isotope dilution-mass spectrometry. Refer to KDIGO guidelines for clinical interpretation. In patients with unstable renal function, e.g. those with acute kidney injury, the eGFR may not accurately reflect actual GFR. Performed By: #### 2 132-9, 3015-3, #### [facility] CLIA [id number] [address] [address] [place] Performed By: #### 2 4323-8, 2-9, 6-3 #### [facility] CLIA [id number] [address] [address] [place] Glucose [Mass/Vol] 117 mg/dL High 74-99 [facility] Comment on above: Order Comment: Speci men Type: BLOOD SPECIMEN Ordering Facility: [facility] Address: [address] [place] [address], [place] [address] Result Comment: The [place] Diabetes Association (ADA) provides guidance for cutoff values for fasting glucose and random glucose. The ADA defines fasting as no caloric intake for at least 8 hours. Fasting plasma glucose results between 100 to 125 mg/dL indicate increased risk for diabetes (prediabetes). Fasting plasma glucose results greater than or equal to 126 mg/dL meet the criteria for diagnosis of diabetes. In the absence of unequivocal hyperglycemia, results should be confirmed by repeat testing. In a patient with classic symptoms of hyperglycemia or hyperglycemic crisis, random plasma glucose results greater than or equal to 200 mg/dL meet the criteria for diagnosis of diabetes. Reference: Standards of Medical Care in Diabetes 2016, [place] Diabetes Association. Diabetes Care. 2016.39(Suppl 1). Performed By: #### 2 132-9, 6-3, 84304-3 #### [facility] CLIA [id number] [address] [address] [place] Performed By: #### 2 4323-8, 2-9, 3015-3 #### [facility] CLIA [id number] [address] [address] [place] Potassium [Moles/Vol] 4.3 mmol/L Normal 3.7-5.1 [facility] Comment on above: Order Comment: Amish stephens Type: BLOOD SPECIMEN Ordering Facility: [facility] Address: [address] [place] [address], [place] [address] Performed By: #### 2 132-9, 3016-3, 37318-5 #### [facility] CLIA [id number] [address] [address] [place] Performed By: #### 2 4323-8, 2131-9, 3015-3 #### [facility] CLIA [id number] [address] [address] [place] Protein [Mass/Vol] 7.1 g/dL Normal 6.3-8.0 [facility] Comment on above: Order Comment: Speci men Type: BLOOD SPECIMEN Ordering Facility: [facility] Address: [address] [place] [address], [place] [address] Performed By: #### 2 132-9, 3015-3, 31623-9 #### [facility] CLIA [id number] [address] [place], [place] [address] [place] Performed By: #### 2 4323-8, 2132-02, 3 #### [facility] CLIA [id number] [facility] [address] [address] [place] Sodium [Moles/Vol] 139 mmol/L Normal 136-144 [facility] Comment on above: Order Comment: Speci men Type: BLOOD SPECIMEN Ordering Facility: [facility] Address: [address] [place] [address], [place] [address] Performed By: #### 2 132-9, 3, 01158-5 #### [facility] CLIA [id number] [address] [place] [address] [place] Performed By: #### 2 4323-8, 9, 3015-3 #### [facility] CLIA [id number] [address] [place], [place] [address] [place] Urea nitrogen [Mass/Vol] 15 mg/dL Normal 9-24 [facility] Comment on above: Order Comment: Speci men Type: BLOOD SPECIMEN Ordering Facility: [facility] Address: [address] [place] [address], [place] [address] Performed By: #### 2 132-9, 3016-3, 60623-4 #### [facility] CLIA [id number] [facility] [address] [place] Performed By: #### 2 4323-8, 2132-9, 3016-3 #### [facility] CLIA [id number] [address] [place] [address] [place] HbA1c (Bld)on 06-15-2023 Average glucose Estimated from glycated hemoglobin (Bld) [Mass/Vol] 108 mg/dL Normal [facility] Comment on above: Order Comment: Amish stephens Type: BLOOD SPECIMEN Ordering Facility: [facility] Address: [address] [place] [address] Result Comment: eAG: (Estimated average glucose) is a calculated value from HgbA1c and is financial representative of the average blood glucose level in the last 2-3 month period. Performed By: #### 5 5454-3 #### [facility] CLIA [id number] [address] [place] [address] [place] [facility] HbA1c (Bld) [Mass fraction] 5.4 % Normal 4.3-5.6 [facility] Comment on above: Order Comment: Amish stephens Type: BLOOD SPECIMEN Ordering Facility: [facility] Address: [address] [place] [address], [place] [address] Result Comment: [place] Diabetes Association guidelines indicate that patients with HgbA1c in the range 5.7-6.4% are at increased risk for development of diabetes, and intervention by lifestyle modification may be beneficial. HgbA1c greater or equal to 6.5% is considered diagnostic of diabetes. Performed By: #### 5 5454-3 #### [facility] CLIA [id number] [address] [place], [place] [address] [place] TSH SerPl-aCncon 06-15-2023 TSH Qn 1.620 m[IU]/L Normal 0.270-4.200 [facility] Comment on above: Order Comment: Speci men Type: BLOOD SPECIMEN Ordering Facility: [facility] Address: [address], [place] [address] Performed By: #### 2 132-9, 6-3, 07251-7 #### [facility] CLIA [id number] [address] [place] Performed By: #### 2 4323-8, 9, 3 #### [facility] CLIA [id number] [address] [place] [id number] [place] Vit B12 [facility] 024 Cobalamin (Vitamin B12) [Mass/Vol] 753 pg/mL Normal 232-1245 [facility] Comment on above: Order Comment: Speci men Type: BLOOD SPECIMEN Ordering Facility: [facility] Address: [address], [place] [address] Performed By: #### 2 132-9, 3, #### [facility] CLIA [id number] [address] [place] [address] [place] Performed By: #### 2 4323-8, 9, 3 #### [facility] CLIA [id number] [address] [place] [address] [place] Basophil percentageOrdered B y: Unique Ferreira on 07-02-2022 Bilirubin [Mass/Vol] 0.30 mg/dL 0.20-1.00 [facility] Comment on above: For patients on eltr ombopag therapy, use of Dimension [place] TBIL is not recommended. Chloride [Moles/Vol] 108 mmol/L 98-107 [facility] Cholesterol [Mass/Vol] 184 mg/dL <200 [facility] Comment on above: <200 mg/dL Desirable 200-240 mg/dL Borderline >240 mg/dL High Risk Glucose [Mass/Vol] 85 mg/dL 74-106 [facility] Potassium [Moles/Vol] 4.0 mmol/L 3.5-5.1 [facility] Protein [Mass/Vol] 7.5 g/dL 6.4-8.2 [facility] Sodium [Moles/Vol] 144 mmol/L 136-145 [facility] Triglyceride [Mass/Vol] 74 mg/dL <199 [facility] Comment on above: The drugs N-Acetylcy steine and Metamizole may falsely depress this assay.Serum Triglycerides Reference Interval Normal <150 mg/dL Borderline high 150 - 199 mg/dL High 200 - 499 mg/dL Very High > or = 500 mg/dL WBC (Bld) [#/Vol] 8.1 10*3/uL 4.4-11.0 [facility] Blood erythrocytes count (nu mber/volume)Ordered By: Unique Ferreira on 07-02-2022 RBC (Bld) [#/Vol] 4.57 10*6/uL 4.6-6.2 [facility] Blood hemoglobin measurement (mass/volume)Ordered By: Unique Ferreira on 07-02-2022 Hemoglobin (Bld) [Mass/Vol] 13.3 g/dL 13.0-16.5 [facility] Blood platelet mean volumeOr dered By: Unique Ferreira on 07-02-2022 Platelet mean volume (Bld) [Entitic vol] 9.7 fL 6.2-12.0 [facility] Determination of erythrocyte mean corpuscular volume (MCV)Ordered By: Unique Ferreira on 07-02-2022 MCV (RBC) [Entitic vol] 91.0 fL 80-94 [facility] Hematocrit Auto (Bld) [Volum e fraction]Ordered By: Unique Ferreira on 07-02-2022 Hematocrit (Bld) [Volume fraction] 41.6 % 40-54 [facility] Laboratory - Chemistry and C hemistry - challengeOrdered By: Unique Ferreira on 07-02-2022 ALP [Catalytic activity/Vol] 69 U/L 45-117 [facility] ALT [Catalytic activity/Vol] 16 U/L 16-61 [facility] CO2 [Moles/Vol] 30.0 mmol/L 21.0-32.0 [facility] Globulin (S) [Mass/Vol] 3.6 g/dL 2.2-4.2 [facility] Urea nitrogen/Creatinine [Mass ratio] 17.9 mg/mg 10-20 [facility] Laboratory - Hematology and Cell countsOrdered By: Unique Ferreira on 07-02-2022 Erythrocyte distribution width (RBC) [Entitic vol] 44.6 fL 35.1-43.9 [facility] Erythrocyte distribution width (RBC) [Ratio] 13.2 % 11.6-14.6 [facility] MCH (RBC) [Entitic mass] 29.1 pg 27.0-32.0 [facility] MCHC Auto (RBC) [Mass/Vol]Or dered By: Unique Ferreira on 07-02-2022 MCHC (RBC) [Mass/Vol] 32.0 g/dL 32-36 [facility] No Panel InformationOrdered By: Unique Ferreira on 07-02-2022 Estimated GFR (MDRD) Amer 91 mL/min >60 [facility] Comment on above: GFR Calc Estimated GFR (MDRD) Non-Af Amer 75 mL/min >60 [facility] Comment on above: Non- GFR Calc Platelets bldOrdered By: Philly Ferreira on 07-02-2022 Platelets (Bld) [#/Vol] 364 10*3/uL 150-450 [facility] Serum or plasma albumin norma urement (mass/volume)Ordered By: Unique Ferreira on 07-02-2022 Albumin [Mass/Vol] 3.9 g/dL 3.2-5.0 [facility] Serum or plasma albumin/glob ulin mass ratioOrdered By: Unique Ferreira on 07-02-2022 Albumin/Globulin [Mass ratio] 1.1 {ratio} 0.9-2.4 [facility] Serum or plasma calcium norma urement (mass/volume)Ordered By: Unique Ferreira on 07-02-2022 Calcium [Mass/Vol] 9.4 mg/dL 8.5-10.1 [facility] Serum or plasma cholesterol in HDL measurement (mass/volume)Ordered By: Unique Ferreira on 07-02-2022 Cholesterol in HDL [Mass/Vol] 49 mg/dL >40 [facility] Comment on above: The drugs N-Acetylcy steine and Metamizole may falsely depress this assay. Reference Range HDL <40 mg/dL Low HDL Cholesterol HDL >or= 60 mg/dL High HDL Cholesterol Serum or plasma cholesterol in VLDL measurement (mass/volume)Ordered By: Unique Ferreira on 07-02-2022 Cholesterol in VLDL [Mass/Vol] 15 mg/dL 5-40 [facility] Serum or plasma creatinine m easurement (mass/volume)Ordered By: Unique Ferreira on 07-02-2022 Creatinine [Mass/Vol] 1.12 mg/dL 0.70-1.30 [facility] Comment on above: The validity of the calculated GFR & GFRAA in patients over 70 years has not been determined. Clinical correlation is essential. Serum or plasma low density lipoprotein (LDL) cholesterol measurement (mass/volume)Ordered By: Unique Ferreira on 07-02-2022 Cholesterol in LDL [Mass/Vol] 120 mg/dL 0-130 [facility] Serum or plasma urea nitroge n measurement (mass/volume)Ordered By: Unique Ferreira on 07-02-2022 Urea nitrogen [Mass/Vol] 20 mg/dL 7-18 [facility] Thin prep Papanicolaou smear with manual screeningOrdered By: Unique Ferreira on 07-02-2022 Thin prep Papanicolaou smear with manual screening 14 U/L 15-37 [facility] Thin prep Papanicolaou smear with manual screening 6 5-15 [facility] Absolute lymphocyte counton 10-02-2021 Lymphocytes Auto (Unsp spec) [#/Vol] 1.70 10*3/uL 0.83-4.51 [facility] Work Phone: Basophil percentageon 2021 Basophils/100 WBC (Bld) 1.3 % 0-1 [facility] Work Phone: Bilirubin [Mass/Vol] 0.40 mg/dL 0.20-1.00 [facility] Work Phone: Comment on above: For patients on eltr ombopag therapy, use of Dimension [place] TBIL is not recommended. Chloride [Moles/Vol] 107 mmol/L 98-107 [facility] Work Phone: Cholesterol [Mass/Vol] 215 mg/dL <200 [facility] Work Phone: Comment on above: <200 mg/dL Desirable 200-240 mg/dL Borderline >240 mg/dL High Risk Eosinophils/100 WBC (Bld) 4.3 % 0-5 [facility] Work Phone: Glucose [Mass/Vol] 90 mg/dL 74-106 [facility] Work Phone: [phone] Neutrophils (Bld) [#/Vol] 4.5 10*3/uL 2.0-7.7 [facility] Work Phone: Neutrophils/100 WBC (Bld) 62.4 % 47-70 [facility] Work Phone: Potassium [Moles/Vol] 3.6 mmol/L 3.5-5.1 [facility] Work Phone: Protein [Mass/Vol] 7.7 g/dL 6.4-8.2 [facility] Work Phone: Sodium [Moles/Vol] 139 mmol/L 136-145 [facility] Work Phone: Triglyceride [Mass/Vol] 146 mg/dL [facility] Work Phone: Comment on above: The drugs N-Acetylcy steine and Metamizole may falsely depress this assay.Serum Triglycerides Reference Interval Normal <150 mg/dL Borderline high 150 - 199 mg/dL High 200 - 499 mg/dL Very High > or = 500 mg/dL WBC (Bld) [#/Vol] 7.2 10*3/uL 4.4-11.0 [facility] Work Phone: Blood erythrocytes count (nu mber/volume)on 10-02-2021 RBC (Bld) [#/Vol] 4.63 10*6/uL 4.6-6.2 [facility] Work Phone: Blood hemoglobin measurement (mass/volume)on 10-02-2021 Hemoglobin (Bld) [Mass/Vol] 13.7 g/dL 13.0-16.5 [facility] Work Phone: Blood lymphocytes/100 leukoc yteson 10-02-2021 Lymphocytes/100 WBC (Bld) 23.6 % 19-41 [facility] Work Phone: Blood monocytes/100 leukocyt eson 10-02-2021 Monocytes/100 WBC (Bld) 8.3 % 0-10 [facility] Work Phone: Blood platelet mean volumeon 10-02-2021 Platelet mean volume (Bld) [Entitic vol] 9.6 fL 6.2-12.0 [facility] Work Phone: Determination of erythrocyte mean corpuscular volume (MCV)on 10-02-2021 MCV (RBC) [Entitic vol] 90.1 fL 80-94 [facility] Work Phone: HIV 1 and HIV-2 antibody ass ay with HIV-1 p24 antigen detectionon 10-02-2021 HIV 1+2 Ab+HIV1 p24 Ag IA Ql Non-Reactive Nonreactive [facility] Work Phone: Hematocrit Auto (Bld) [Volum e fraction]on 10-02-2021 Hematocrit (Bld) [Volume fraction] 41.7 % 40-54 [facility] Work Phone: Laboratory - Chemistry and C hemistry - challengeon 10-02-2021 ALP [Catalytic activity/Vol] 83 U/L 45-117 [facility] Work Phone: ALT [Catalytic activity/Vol] 16 U/L 16-61 [facility] Work Phone: CO2 [Moles/Vol] 28.0 mmol/L 21.0-32.0 [facility] Work Phone: Globulin (S) [Mass/Vol] 3.7 g/dL 2.2-4.2 [facility] Work Phone: Urea nitrogen/Creatinine [Mass ratio] 14.9 mg/mg 10-20 [facility] Work Phone: Laboratory - Hematology and Cell countson 10-02-2021 Erythrocyte distribution width (RBC) [Entitic vol] 44.1 fL 35.1-43.9 [facility] Work Phone: Erythrocyte distribution width (RBC) [Ratio] 13.3 % 11.6-14.6 [facility] Work Phone: Immature granulocytes/100 WBC (Bld) 0.100 % 0.0-0.9 [facility] Work Phone: Comment on above: IG% - Immature Granu locytes (promyelocytes, myelocytes and metamyelocytes) > 1% indicates that a LEFT SHIFT is Present. MCH (RBC) [Entitic mass] 29.6 pg 27.0-32.0 [facility] Work Phone: Nucleated RBC/100 WBC (Bld) [Ratio] 0 % 0-5 [facility] Work Phone: MCHC Auto (RBC) [Mass/Vol]on 10-02-2021 MCHC (RBC) [Mass/Vol] 32.9 g/dL 32-36 [facility] Work Phone: No Panel Informationon 10-02 Estimated GFR (MDRD) Amer 102 mL/min >60 [facility] Work Phone: Comment on above: GFR Calc Estimated GFR (MDRD) Non-Af Amer 85 mL/min >60 [facility] Work Phone: Comment on above: Non- GFR Calc Hepatitis C Antibody Non-Reactive Nonreactive [facility] Work Phone: Comment on above: Non Reactive: < 0.8 Equivocal: >/= 0.8 to < 1.0 Reactive: >/= 1.0The CDC recommends that a reactive/equivocal HCV antibody result be followed up by the HCV Nucleic Acid Amplificationtest (060825) Percent Free Prostate Specific Ag 0.16 ng/mL N/A [facility] Work Phone: Comment on above: [facility] ECLIA methodol ogy. Prostate Specific Antigen Total 1.0 ng/mL [facility] Work Phone: Comment on above: [facility] ECLIA methodol ogy.According to the [place] [employer], Serum PSAshould decrease and remain at undetectable levels afterradical prostatectomy. The AUA defines biochemicalrecurrence as an initial PSA value 0.2 ng/mL or greaterfollowed by a subsequent confirmatory PSA value 0.2 ng/mLor greater. Values obtained with different assay methods orkits cannot be used interchangeably. Results cannot beinterpreted as absolute evidence of the presence or absenceof malignant disease. Thyroid Stimulating Hormone (TSH) 2.46 uIU/mL 0.358-3.74 [facility] Work Phone: Platelets bldon 10-02-2021 Platelets (Bld) [#/Vol] 337 10*3/uL 150-450 [facility] Work Phone: Serum Helicobacter pylori Ig G antibody assay (units/volume)on 10-02-2021 H. pylori IgG Qn (S) 0.27 [facility] Work Phone: Comment on above: Result Units: Index Value Negative <0.80 Equivocal 0.80 - 0.89 Positive >0.89Performed at: [facility] [employer] [id number] Director: Chriss Hutchins PhD, Phone: [phone] Serum or plasma albumin norma urement (mass/volume)on 10-02-2021 Albumin [Mass/Vol] 4.0 g/dL 3.2-5.0 [facility] Work Phone: Serum or plasma albumin/glob ulin mass ratioon 10-02-2021 Albumin/Globulin [Mass ratio] 1.1 {ratio} 0.9-2.4 [facility] Work Phone: Serum or plasma calcium norma urement (mass/volume)on 10-02-2021 Calcium [Mass/Vol] 9.3 mg/dL 8.5-10.1 [facility] Work Phone: Serum or plasma cholesterol in HDL measurement (mass/volume)on 04-29-2022 Cholesterol in HDL [Mass/Vol] 47 mg/dL [facility] Work Phone: Comment on above: The drugs N-Acetylcy steine and Metamizole may falsely depress this assay. Reference Range HDL <40 mg/dL Low HDL Cholesterol HDL >or= 60 mg/dL High HDL Cholesterol Serum or plasma cholesterol in VLDL measurement (mass/volume)on 10-02-2021 Cholesterol in VLDL [Mass/Vol] 29 mg/dL 5-40 [facility] Work Phone: Serum or plasma creatinine m easurement (mass/volume)on 10-02-2021 Creatinine [Mass/Vol] 1.01 mg/dL 0.70-1.30 [facility] Work Phone: Comment on above: The validity of the calculated GFR & GFRAA in patients over 70 years has not been determined. Clinical correlation is essential. Serum or plasma free prostat e specific antigen/total prostate specific antigen ratioon 10-02-2021 Free PSA/Total PSA [Mass fraction] 16.0 % [facility] Work Phone: Comment on above: The table below list s the probability of prostate cancer formen with non-suspicious KEKE results and total PSA between4 and 10 ng/mL, by patient age (Jerod et al, SID 1998,279:1542). % Free PSA 50-64 yr 65-75 yr 0.00-10.00% 56% 55% 10.01-15.00% 24% 35% 15.01-20.00% 17% 23% 20.01-25.00% 10% 20% >25.00% 5% 9%Please note: Jerod et al did not make specific recommendations regarding the use of percent free PSA for any other population of men. Serum or plasma low density lipoprotein (LDL) cholesterol measurement (mass/volume)on 10-02-2021 Cholesterol in LDL [Mass/Vol] 139 mg/dL 0-130 [facility] Work Phone: Serum or plasma urea nitroge n measurement (mass/volume)on 10-02-2021 Urea nitrogen [Mass/Vol] 15 mg/dL 7-18 [facility] Work Phone: Thin prep Papanicolaou smear with manual screeningon 10-02-2021 Thin prep Papanicolaou smear with manual screening 16 U/L 15-37 [facility] Work Phone: Thin prep Papanicolaou smear with manual screening 4 5-15 [facility] Work Phone: Whole blood hemoglobin A1c/t otal hemoglobin ratio (mass fraction)on 10-02-2021 HbA1c (Bld) [Mass fraction] 5.3 % 3.8-5.6 [facility] Work Phone: Comment on above: Normal < 5.7 % Predi abetic 5.7 - 6.4 % Diabetic >or= 6.5 % Please note range changes. CBC and Differentialon 04-09 Abs Baso 0.10 k/uL Normal <0.11 [facility] Abs Alger 0.54 k/uL Normal <0.87 [facility] Abs Neut 4.70 k/uL Normal 1.45-7.50 [facility] Basophils/100 WBC Auto (Bld) 1.3 % Normal [facility] DTYPE ADIFF Normal [facility] Eosinophils 0.22 10*3/uL Normal <0.46 [facility] Eosinophils/100 leukocytes 2.8 % Normal [facility] Erythrocyte distribution width Auto Ratio (RBC) 13.5 % Normal 11.5-15.0 [facility] Erythrocytes (RBC) 4.41 10*6/uL Normal 4.20-6.00 [facility] Erythrocytes (RBC) 10*6/uL Normal <0.01 [facility] Erythrocytes (RBC) 0.0 /100 WBC Normal 0 [facility] Hematocrit (HCT) 41.2 % Normal 39.0-51.0 [facility] Hemoglobin mass conc (Bld) 13.2 g/dL Normal 13.0-17.0 [facility] Lymphocytes 2.18 10*3/uL Normal 1.00-4.00 [facility] Lymphocytes/100 leukocytes 28.1 % Normal [facility] MCH 29.9 pG Normal 26.0-34.0 [facility] MCHC mass conc (RBC) 32.0 g/dL Normal 30.5-36.0 [facility] MCV 93.4 fL Normal 80.0-100.0 [facility] Monocytes/100 leukocytes 7.0 % Normal [facility] Neutrophils/100 WBC Auto (Bld) 60.8 % Normal [facility] Platelet mean volume (PMV) 11.0 fL Normal 9.0-12.7 [facility] Platelets 332 10*3/uL Normal 150-400 [facility] WBC (Leukocytes) 7.76 10*3/uL Normal 3.70-11.00 [facility] Comp Metabolic Panelon 04-09 Alanine aminotransferase (ALT) 7 U/L Low 10-54 [facility] Albumin 4.7 g/dL Normal 3.9-4.9 [facility] Alkaline phosphatase (ALP) 68 U/L Normal 36-108 [facility] Anion gap 11 mmol/L Normal 9-18 [facility] Aspartate aminotransferase (AST) 16 U/L Normal 14-40 [facility] Bilirubin Ql (U) 0.5 mg/dL Normal 0.2-1.3 [facility] Calcium 9.4 mg/dL Normal 8.5-10.2 [facility] Chloride 103 mmol/L Normal 97-105 [facility] CO2 28 mmol/L Normal 22-30 [facility] Creatinine 1.09 mg/dL Normal 0.73-1.22 [facility] eGFR (non-black) mL/min/{1.73_m2} Normal Cl [facility] Glucose mass conc 90 mg/dL Normal 74-99 [facility] Potassium molar conc 4.0 mmol/L Normal 3.7-5.1 [facility] Protein 7.2 g/dL Normal 6.3-8.0 [facility] Sodium 142 mmol/L Normal 136-144 [facility] Urea nitrogen 17 mg/dL Normal 9-24 [facility] Lipid Panel, Basicon 017 Cholesterol 185 mg/dL Normal 100-199 [facility] Cholesterol in VLDL mass conc 24 mg/dL Normal 6-40 [facility] HDL Cholesterol 67 mg/dL Normal >45 [facility] LDL Cholesterol 94 mg/dL Normal 60-129 [facility] LDL:HDL Ratio 1.40 Normal 0.50-3.55 [facility] Non HDL Cholesterol 118 mg/dL Normal 90-159 [facility] TC:HDL Ratio 2.76 Normal 1.00-5.00 [facility] Triglyceride 122 mg/dL Normal 30-149 [facility] Fasting Time 11 hrs Normal [facility] Vital Signs Date Time Vital Sign Value Performing Clinician Faci lity 09-01-2023 11:25-0400 Body temperature 97 [degF] [facility] Work Phone: [phone] [place] [address] 09-01-2023 11:25-0400 Diastolic blood pressure 79 mm[Hg] [facility] Work Phone: [phone])272-067070 [place] [address] 09-01-2023 11:25-0400 Heart rate 70 /min [facility] Work Phone: [phone])[phone] [place] [address] 09-01-2023 11:25-0400 Respiratory rate 16 /min [facility] Work Phone: [phone])522-076270 [place] [address] 09-01-2023 11:25-0400 SaO2% (BldA) [Mass fraction] 100 % [facility] Work Phone: [phone])864-026470 [place] [address] 09-01-2023 11:25-0400 Systolic blood pressure 109 mm[Hg] [facility] Work Phone: [phone])967-048570 [place] [address] 09-01-2023 08:48-0400 Body height 175.26 cm [facility] Work Phone: [phone] [place] [address] 09-01-2023 08:48-0400 Body mass index (BMI) [Ratio] 26.9 kg/m2 [facility] Work Phone: [phone])514-272370 [place] [address] 09-01-2023 08:48-0400 Body weight 82.5 kg [facility] Work Phone: [phone])680-975670 [place] [address] 07-20-2023 13:43-0500 Body mass index (BMI) [Ratio] 28.3 kg/m2 [facility] Work Phone: [phone] [place] [address] 07-20-2023 13:43-0500 Body weight 87.08 kg [facility] Work Phone: [facility] 07-20-2023 13:43-0500 Diastolic blood pressure 80 mm[Hg] [facility] Work Phone: [facility] 07-20-2023 13:43-0500 Respiratory rate 18 /min [facility] Work Phone: [facility] 07-20-2023 13:43-0500 Systolic blood pressure 137 mm[Hg] [facility] Work Phone: [facility] Encounters Encounter Date Encounter Type Care Provider Facility Start: 11-21-2024 End: 11-21-2024 ambulatory Unique Ferreira LOSS PREVENTION COORDINATOR-C Work Phone: [facility] Work Phone: Start: 11-21-2024 End: 11-21-2024 Patient encounter procedure [facility] Unique Ferreira LOSS PREVENTION COORDINATOR-C -Laboratory Zayn[facility] Aviles Start: 11-21-2024 End: 11-21-2024 ambulatory Unique Ferreira [facility] Facility:[facility] Start: 12-29-2023 End: 12-29-2023 ambulatory [facility] Facility:[facility] Start: 09-01-2023 Non-patient / Non-visit [facility] Work Phone: [facility] Start: 09-01-2023 End: 09-01-2023 Admission to same day surgery center [facility] Work Phone: [facility]-Endoscopy Work Phone: Start: 09-01-2023 End: 09-01-2023 [facility]: [facility] Work Phone: Start: 07-31-2023 End: 07-31-2023 Patient encounter procedure [facility] Work Phone: [facility] Work Phone: Start: 07-20-2023 End: 07-20-2023 Patient encounter procedure [facility] Work Phone: [facility] Work Phone: Start: 06-30-2023 Non-patient / Non-visit [facility] Work Phone: [facility] Start: 06-29-2023 End: 06-29-2023 ambulatory [facility] Work Phone: [facility] Work Phone: Start: 06-29-2023 End: 06-29-2023 Patient encounter procedure [facility] Work Phone: [facility]-Pulmonary Services/Neurology Work Phone: Start: 07-02-2022 End: 07-02-2022 ambulatory [facility] Work Phone: Start: 07-02-2022 End: 07-02-2022 Patient encounter procedure [facility]Laboratory Start: 10-02-2021 End: 10-02-2021 Patient encounter procedure [facility]Labor[facility] Procedures Date Procedure Procedure Detail Performing Clinician Start: 11-21-2024 Vitamin D, 25-hydrox y measurement Unique ANNA Work Phone: Comment on above: Vitamin D StatusDefi ciency: <20 ng/mL (50nmol/L)Insufficiency: 20-30 ng/mL (50-75 nmol/L)Sufficiency: 30-100 ng/mL (75-250 nmol/L)Toxicity: >100 ng/mL (>250 nmol/L) Start: 09-01-2023 Colonoscopy [facility] Work Phone: Plan of Treatment Date Care Activity Detail Author Start: 11-21-2024 [facility] Start: 09-01-2023 Patient discharge [facility] Start: 10-02-2021 Assay of prostate sp ecific antigen free ASSAY OF PSA FREE [facility] Work Phone: Beef IgE Ab [Units/v olume] in Serum [facility] Chocolate IgE Ab [Units/volume] in Serum [facility] Codfish IgE Ab [Units/volume] in Serum [facility] Colonoscopy [facility] IgE Ab [Units/v olume] in Serum [facility] Cow milk IgE Ab [Units/volume] in Serum [facility] Food RAST [facility] Patient referral [facility] Work Phone: Peanut IgE Ab [Units/volume] in Serum [facility] Pork IgE Ab [Units/v olume] in Serum [facility] Conshohocken IgE Ab [Units/volume] in Serum [facility] Shrimp IgE Ab [Units/volume] in Serum [facility] Soybean IgE Ab [Units/volume] in Serum [facility] Tuna IgE Ab [Units/v olume] in Serum [facility] Wheat IgE Ab [Units/volume] in Serum [facility] Whole Egg IgE Ab [Units/volume] in Serum [facility] Payers Date Payer Category Payer Self-pay [id number] 2023 Unknown [id number] Unknown [id number] Unknown [id number] Social History Date Type Detail Facility Start: 10-02-2021 End: 08-30-2023 Tobacco smoking status NHIS Unknown if ever smoked [facility] Start: 1975 Sex Assigned At Male W [facility] Start: 08-30-2023 Tobacco smoking stat us CTIS Ex-smoker (finding) [facility] Medical Equipment Procedure Code Equipment Code Equipment Original Text Equipment Identifier Dates Colonoscopy Gastrointestinal telemetric monitoring system ([id number] [facility] Start: 09-01-2023 Goals Date Patient Goal Desired Activity /State Mental Status Date Assessment Result Facility 09-01-2023 Cognitive function Level Of Consciousness Sedated [facility] Work Phone: 09-01-2023 Cognitive function Voice/Name [facility] Work Phone: History and physical note 09-01-2023 Note Date & Type Note Facility 09-01-2023 History and physi dipti note Note Date/Time September 01, 2023 9:54am [facility] Medical Records Department [address] [place] [address] History & Physical Exam 09/01/23 0953 MR#: [id number] Acct: [id number] Name: SALLY KING Rep #:[id number] : 1975 48 From: Naga Car PCP: [facility] St atus:[facility] Location: [place] [address] History and Physical Date of Admission: 09/01/23 Date of Service: 07/20/23 MR#: [id number] Acct: [id number] Name: SALLY KING Rep #: [id number] : 1975 Provider: Dr. 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 Naga Zuniga MD) Acid reflux Bloating Constipation Diarrhea Dysphagia Family History (Updated 07/20/23 @ 13:43 by Nalini Stringer) Father AsthmaGrandmother Cancer lung Social History Smoking Status: Current every day smoker HPI HPI HPI: Patient is a 48-year-old male who presents for evaluation of heartburn and dysphagia. They are referred for surgical consultation from the [facility]. Mr. King shares that his swallowing difficulty has become actually more infrequent in recent years but estimates that it has been there at least 15years. He notes some associated limited choking episodes but states that his symptoms actually improved since giving up alcohol. He shares that his reflux symptoms (he denies significant heartburn symptoms) have been present for about 25 years but have been worse over the past 15 years. He shares that he has recently resolved to try to get healthier after he was challenged by his daughter to live another 40 years. While this has been the impetus to have thisissue further investigated, he notes that the past few months have been worse with his reflux symptoms. He describes pressure pushing all the way up and pressure and gestures to his neck when he experiences the reflux symptoms. He states that the symptoms often precipitate anxiety attacks and estimates this occurs with a frequency of 2-3 times per week. He notes that his symptoms seem to be worse in the evening and in the past has awoken him from sleep but this has not been the case more recently. During these times he wakes up gasping forair unable to breathe. He denies any history of frequent upper respiratory tract infections. 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 He confirms that Protonix has been helpful for the last 15 years and he certainly notices a increase in his symptoms when he is without it (he notes a recent 5-day lapse inhis treatment as he awaited a refill of his medication. Mr. King confirms a roughly 15 pound weight gain in the last 3 months and attributes this to less physical activity at work as well as quitting smoking. He confirms that he is trying to space out dinner and bedtime. He is also restricting spicy foods but admits that he is not perfect. He states that he there is still a struggle with caffeine. He shares that he is trying to cut back but when he cuts back hefinds himself overeating and this also produces symptoms. Patient states that he generally has 1 solid stool per day but previously experienced significant issues with constipation and diarrhea?particularly when he was still drinking alcohol. He denies any significant straining with bowel movements. He does note that given his recent antibiotic course for a tooth infection he has been more mucousy with the consistency of his bowels. He denies noting any bloody stools. He does confirm a history of hemorrhoids but denies any flares of late. There is no history of abdominal surgery. Patient denies a family history of inflammatory bowel disease, diverticulitis, or colon cancer. However, he shares that his father has told him that he is covered in ulcers all the way through but he is unsure of what this means exactly as his father is somewhat quiet about these matters. ROS General General: Yes weight change and fatigue; No appetite, colon cancer, breast cancer or weakness HEENT HEENT: Yes difficulty swallowing, eye injury and eye surgery; No swollen glands or hoarseness Endo Endocrine: No thyroid disease, diabetes mellitus, thyroid cancer, Hair loss, heat intolerance or cold intolerance Skin Skin: Yes rash; No changing moles Breast Breast: No left breast lump, right breast lump, nipple discharge, breast pain, abnormal mammogram, abnormal US or breast enlargement Musc Musculoskeletal: Yes back problems and arthritis; No rheumatoid arthritis, gout or joint pain Cardio Cardiovascular: No murmur, pacemaker, heart disease, atrial fibrillation, high blood pressure, heart attack, heart stent, palpitations, shortness of breat withexertion or chest pain Psych Psychiatric: Yes depression and anxiety; No hearing voices Resp Respiratory: Yes shortness of breath, No sleep apnea, Yes cough, No COPD, No asthma, No emphysema and No wheezing Gastro Gastrointestinal: Yes abdominal pain, Yes nausea or vomiting, Yes diarrhea, Yes constipation, Yes blood in stool, Yes acid reflux, Yes hemorrhoids, No ulcers, No gallbladder problem and Yes black,tarry stools Reg Hematologic: No blood thinners, No blood disorders, No bleeding, No anemia and No blood clots Neuro Neurologic: No system reviewed and no additional complaints, except as documented, No as per HPI, No abnormal gait, No abnormal hearing, No abnormal movements,No abnormal speech, No behavioral changes, No burning sensations, No confusion, No convulsions, No disequilibrium, No dizziness, No localized weakness, No frequent falls, No headache(s), No lack of coordination, No loss of vision, No memory loss, Yes numbness, No other visual disturbances, No radicular pain, No restless legs, No sensory deficit, No syncope, Yes tingling, No tremor(s), No weakness and No other Exam Const General: cooperative and anxious Orientation: alert, awake and oriented x3 Resp Effort & Inspection: normal respiratory effort GI Other: Nondistended, no scars, soft, mildly tender to palpation (deep) of the epigastrium. Assessment and Plan Assessment and Plan (1) Acid reflux: Status: Acute Comment: This is a 48-year-old male who presents with a number of GI complaints includingacid reflux. This does appear to be his main complaint although he admits that there is significant chronicity with this complaint. He suggest that it has become worse in recent months. It is partially responsive to PPI therapy. He has never undergone EGD for evaluation. There has been a recent weight gain of 15 pounds in recent months. I discussed with him that I would like to proceed with EGD for evaluation for possible hiatal hernia as well as biopsies to assessfor any mucosal changes with his history of reflux and smoking. Additionally, patient has a normal BMI and appears distressed by the symptoms so I have recommended consideration of possible antireflux surgery. As part of this workup I have recommended we place a pH probe at the time of his EGD to try to calculate a DeMeester score. Mr. King is receptive of this recommendation andwishes to proceed as described because he would simply like to understand why heis feeling the way he is. Plan: EGD with pH probe placement (2) Dysphagia: Status: Acute Comment: Patient describes difficulty swallowing for years. This is somewhat improved per his report. His descriptions of food becoming stuck and reactive airway history are somewhat suggestive for possible diagnosis of eosinophilic esophagitis. I will plan to get biopsies and look carefully for this diagnosis at the time of the EGD as proposed above. Plan: EGD (3) Constipation: Status: Acute Comment: Patient describes relatively normal bowel movements since stopping his alcoholism. Yet, with his history and age now greater than 46 with no prior colonoscopic investigation I have recommended we complete a diagnostic colonoscopy in addition to the EGD proposed above. Plan: Complete colonoscopy with 2-day bowel prep in conjunction with EGD as above. 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 (4) Diarrhea: Status: Acute Comment: As with constipation, patient's diarrheal symptoms seem minimal now since leaving alcoholism behind. Still, recommending colonoscopy as above Plan: I have examined the patient and the H&P has been reviewed. There are no clinicalchanges since date of exam. He does state that his fasting has led to improvement in his reflux, but he also confirms that he has stopped his medication anticipation of pH probe placement. He confirms completion of a prepand that his output is now clear. His abdomen is benign on exam. He denies anyquestions related today's procedure. Will now proceed to endoscopy suite for planned EGD with pH probe placement as well as diagnostic colonoscopy. 09/01/23 0954 <Electronically signed by Naga Zuniga MD> Cosigner Signature (if applicable): CC: Dr. Naga Zuniga MD; [facility]~ Signed [facility] Work Phone: Procedure note 09-01-2023 Note Date & Type Note Facility 09-01-2023 Procedure note [facility] Procedure note 09-01-2023 Note Date & Type Note Facility 09-01-2023 Procedure note [facility] Procedure note 09-01-2023 Note Date & Type Note Facility 09-01-2023 Procedure note [facility] Procedure note 09-01-2023 Note Date & Type Note Facility 09-01-2023 Procedure note [facility] Procedure note 06-30-2023 Note Date & Type Note Facility 06-30-2023 Procedure note [facility] Evaluation note Note Date & Type Note Facility Evaluation note No assessment information availa ble [facility] Work Phone: Evaluation note Note Date & Type Note Facility Evaluation note Diagnosis Onset Date Acid reflux acute Constipation acute Diarrhea acute Dysphagia acute [facility] Work Phone: Reason for referral (narrative) Note Date & Type Note Facility Reason for referral (narrative) No reason for referral information available [facility] Work Phone: Summary Purpose Family History No Family History Records Found Relationship Condition Age at Onset Recorded Date/T anthony father Asthma Unknown grandmother Malignant neoplasm Unknown Advance Directives No Advanced Directives Records Found Advance Directive Response Recorded Date/ Time Living Will No August 30, 2023 2:42pm Power of Geophysical Laboratory Director No August 29 2:42pm Chief Complaint and Reason for Visit Chief Complaint Dyspnea, unspecified Dyspnea, unspecified Chief Complaint Dyspnea, unspecified Dyspnea, unspecified UPPER & LOWER - REFLUX POST INCIDENT NONDOT DRUG AND BAT/ FRITO LAY Reason for Visit Acid reflux Constipation Diarrhea Dysphagia Additional Source Comments (unrecognized sect ion and content) No Status Records FoundNo Status Records FoundNo Status Records FoundNo Status Records Found INFORMATION SOURCE (unrecogn ized section and content) DATE CREATED AUTHOR 11/29/2017 [facility] DATE CREATED AUTHOR AUTHOR'S ORGANIZ ATION 06/17/2023 [facility] DATE CREATED AUTHOR AUTHOR'S ORGANIZ ATION 07/02/2023 [facility] DATE CREATED AUTHOR AUTHOR'S ORGANIZ ATION 12/03/2024 [facility] Goals (unrecognized section and content) Goals may be documented in a n alternate sectionGoals may be documented in an alternate sectionGoals may be documented in an alternate sectionGoals may be documented in an alternate section Care Teams (unrecognized sec tion and content) Team Status: Active Member Role Status Dates [facility] Primary Care Provider A ctive Team Status: Inactive Member Role Status Dates [facility] Primary Care Provider A yarelyive Unique Ferreira LOSS PREVENTION COORDINATOR, LOSS PREVENTION COORDINATOR-C Attending Provider Active Team Status: Active Member Role Status Dates [facility] Primary Care Provider A yarelyive Unique Ferreira LOSS PREVENTION COORDINATOR, LOSS PREVENTION COORDINATOR-C Referring Provider, Other Pr ovider Active Dr. Sebastien Orellana DO Attending Provider Active Team Status: Inactive Member Role Status Dates [facility] Primary Care Provider A yarelyive Unique Ferreira LOSS PREVENTION COORDINATOR, LOSS PREVENTION COORDINATOR-C Attending Provider, Referrin g Provider Active Team Status: Inactive Member Role Status Dates [facility] Primary Care Provider, Referring Provider Active Dr. Naga Zuniga MD Attending Provider Active Team Status: Inactive Member Role Status Dates [facility] Primary Care Provider, Referring Provider Active Christine Sanchez NP-C Attending Provider Active Team Status: Active Member Role Status Dates [facility] Primary Care Provider, Referring Provider Active Dr. Naga Zuniga MD Attending Provider, Other Provi tabitha Active Team Status: Active Member Role Status Dates Unique Ferreira RG, LOSS PREVENTION COORDINATOR-C Primary Care Provider Activ e Team Status: Inactive Member Role Status Dates Unique Ferreira RG, LOSS PREVENTION COORDINATOR-C Primary Care Provider Activ e Start: November 21, 2024 End: November 21, 2024 Unique Ferreira RG, LOSS PREVENTION COORDINATOR-C Attending Provider Active Start: November 21, 2024 End: November 21, 2024 FOR RECORDS PERTAINING TO PATIENTS WHO ARE [...] BE BASED ON THE PRIMARY CLINICAL RECORDS. [facility] [employer] [facility]. provides no warranty or guarantee of the accuracy or completeness of information in this document.
[2025-01-08] MEDS: 0.9% Normal Saline (1000mL) 1,000 ML 1000 ML IV (22:00)
[2025-01-08 22:08] LABS: Hematocrit 39.7 % (40-54); Hemoglobin 13.2 g/dL (13.0-16.5); Immature Granulocytes Count 0.020 X10^3/uL (0.0-0.0); Mean Corp Hgb Conc 33.2 g/dL (32-36); Mean Corpuscular Volume 88.0 fL (80-94); Mean Platelet Vol. 9.1 fl (6.2-12.0); NRBC Flagged by Analyzer 0 % (0-5); POSITIVE DIFFERENTIAL YES; Platelet Count 290 K/mm3 (150-450); RBC Distribution Width CV 13.2 % (11.6-14.6); RBC Distribution Width SD 42.9 fl (35.1-43.9); Red Blood Count 4.51 M/mm3 (4.6-6.2); White Blood Count 6.1 K/mm3 (4.4-11.0)
[2025-01-08] MEDS: Famotidine 200 MG/20 ML MDV 20 MG in 0.9% Normal Saline (Pres. free 8 ML 300 MG IV (22:14)
[2025-01-08 22:26] LABS: AST(SGOT) 21 U/L (<=37); Alanine Aminotransfer ALT/SGPT 9 U/L (<=46); Albumin, Serum 4.3 g/dL (3.5-5.0); Alkaline Phosphatase 96 U/L (40-129); Anion Gap 13 (5-15); BUN 14 mg/dL (4-19); BUN/Creat Ratio 13.2 RATIO (10-20); Calcium,Total 9.4 mg/dL (7.6-11.0); Carbon Dioxide 22.7 mmol/L (21.0-32.0); Chloride 101 mmol/L (98-108); Estimated Creatinine Clearance 87.71 ml/min (50-250); Globulin 3.1 g/dL (2.2-4.2); Glucose 111 mg/dL (70-99); Lipase 23 U/L (13-75); Potassium 3.7 mmol/L (3.3-5.1)
[2025-01-08 22:58] VITALS: BP 124/47; PULSE 110; RESP 18; TEMP 37.1; O2SAT 97
== END 2025-01-08 23:03 | disposition home or self-care (01) ==
PROVIDERS: Emergency Provider Emergency Medicine; PCP Nurse Practitioner Family; Visit Provider Emergency Medicine
DX: G44.40 Drug-induced headache, not elsewhere classified, not intractable (principal); R11.0 Nausea; T36.4X5A Adverse effect of tetracyclines, initial encounter; K21.9 Gastro-esophageal reflux disease without esophagitis; Z87.891 Personal history of nicotine dependence; R29.700 NIHSS score 0; Z79.899 Other long term (current) drug therapy; R42 Dizziness and giddiness; H66.90 Otitis media, unspecified, unspecified ear
CPT/HCPCS: 80053; 83690; 85025; 93005; 96361; 96374; 96375; 99284